=== PATIENT | female | born 1950 | race Caucasian/White ===

== ENCOUNTER 2017-01-21 18:03 | Inpatient (IN) | payer BC ==
[~2017-01-21] VITALS: Ht 157.5 cm; Wt 117.5 kg
--- NOTE | ~2017-01-21 | HC ---
[facility] [place] [address] CONSULTATION Name: CECY DEGROOT Room #: 427-P ADM IN M.R.#: [id number] Admission: 01/21/17 Attend Phys: Ye Ruth MD Discharge: Date of : 52 Report #: [id number] THIS REPORT FOR: //name// CC: Coby Ruth TYPE OF REPORT: Infectious disease consultation. REASON FOR CONSULTATION: I was asked to evaluate concerning right olecranon bursitis, recurrent urinary tract infection in the setting of diabetes. HISTORY OF PRESENT ILLNESS: The patient is a 66-year old who has had several year history incomplete emptying and urinary incontinence with recurrent urinary tract infections and cystitis. She has been on and off antibiotics, most recently Augmentin. She now presents to the emergency room with increased pain and swelling in the right elbow. She scarped the skin of the elbow 2 weeks ago. This area has healed, although she had increased swelling over the olecranon region most recently. Placed on vancomycin. She does have a history of MRSA. Orthopedic surgery has been consulted. X-rays showed edema with no bony abnormalities. ALLERGIES: ADHESIVES TAPE, LATEX and MORPHINE. MEDICATIONS: As noted on her MAR including vancomycin. She did receive ceftriaxone in the emergency room. PAST MEDICAL HISTORY: As noted above with diabetes, hypertension and bipolar disorder. FAMILY HISTORY: Noncontributory. SOCIAL HISTORY: Nonsmoker. No significant alcohol intake. 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 REVIEW OF SYSTEMS: Denies any headache, cough, sputum, nausea, vomiting or diarrhea. She is complaining of urinary incontinence and incomplete emptying of her bladder. PHYSICAL EXAMINATION: VITAL SIGNS: Afebrile and hemodynamically stable. Her maximum temperature was 100.2 on 01/21/2017. GENERAL: She was obese. She was alert and cooperative. HEENT: Unremarkable. NECK: Supple. EXTREMITIES: She had some mild tender adenopathy in the right axilla. Right upper extremity had evidence of olecranon bursitis with fluctuance over the olecranon bursa surrounding erythema, which extended up the lower portion of her [facility] [address] [place] [address] CONSULTATION Name: CECY DEGROOT Room #: 427-P [facility] IN M.R.#: [id number] Admission: 01/21/17 Attend Phys: Ye Ruth MD Discharge: Date of : 52 Report #: [id number] upper arm and involving the proximal portion of her forearm. She had reasonable range of motion, although flexion was limited due to her pain. LUNGS: Clear. HEART: Regular, without murmur. ABDOMEN: Soft, nontender and moderate abdominal pannus. No appreciable masses or hepatosplenomegaly. GENITOURINARY: External genitalia unremarkable. LABORATORY STUDIES: Sodium 139, potassium 3.7, bicarbonate 29 and creatinine 1. Hemoglobin 11.7; WBC 11.8 and platelet count 228,000. Vancomycin trough 20. Differential unremarkable. Urinalysis unremarkable. Urine culture pending. Blood culture is negative to date. RADIOLOGICAL DATA: X-ray of the elbow, soft tissue edema. IMPRESSION: 1. Olecranon bursitis, suspects staphylococcal infection versus strep infection. 2. Urinary outlet issues. Question whether she has got some neurogenic bladder from her diabetes. 3. Diabetes. RECOMMENDATIONS: We will continue IV antibiotic therapy with vancomycin. We will elevate the arm and try to control some of the edema. If no improvement, then we would recommend incision and drainage of the olecranon. We will check a post-void residual and may need further urologic evaluation. <ELECTRONICALLY SIGNED> By: Minor Encinas MD 01/26/17 1257 1605 2216 Minor Encinas MD /nt
--- NOTE | ~2017-01-21 | H ---
[facility] [place] [address] HISTORY AND PHYSICAL Name: CECY DEGROOT Room #: 427-P ADM IN M.R.#: [id number] Admission: 01/21/17 Attend Phys: Ye Ruth MD Discharge: Date of : 52 Report #: [id number] THIS REPORT FOR: //name// CC: Ronald Celaya ATTENDING PHYSICIAN: Dr. White. PRIMARY CARE PHYSICIAN: Dr. Coby Celaya at [facility]. CHIEF COMPLAINT: Right elbow pain, redness and swelling. HISTORY OF PRESENT ILLNESS: The patient is a 66-year-old female who came into the ER with the above complaints. She noticed that her right elbow is somewhat painful and feeling warm yesterday. She had had a small scab on her elbow for a few days prior to that. She is not sure how she got this scab there in the first place, but she denied any initial injury to the elbow. Today, the elbow became more red and swollen. She states the pain was 7/10 with any movement, she was able to move her elbow though and had full range of motion. She denies any history of arthritis to that elbow. She has not noticed any drainage from the scab on the elbow. Denies any fevers, but she thinks she was feeling warm. Denies any chills. She is a diabetic and states her blood sugar was 235 at home. She came into the ER and was noted to be febrile on arrival with a temperature of 37.9. She did state she had a fall at home earlier in the week that it took her 4-5 hours to get up and at one point, she thinks she was trying to use her arm and elbow to push herself up and she thinks that is when she may have obtained the sore on her elbow. PAST MEDICAL HISTORY: Diabetes type 2, hypertension, restless legs syndrome, borderline personality disorder, bipolar disorder, asthma. PAST SURGICAL HISTORY: Multiple abdominal hernia repairs including ventral hernias, umbilical hernias and inguinal hernias, cholecystectomy; screw in the foot, which was subsequently removed; appendectomy, gastric bypass, knee surgery. ALLERGIES: Include MORPHINE and . HOME MEDICATIONS: Reviewed. SOCIAL HISTORY: The patient does have a history of remote tobacco use, she quit in the 1980s. Alcohol use is rare, no drug use. She lives at home alone. 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 She has no children. She is . She normally ambulates with a cane. FAMILY HISTORY: Her mother at the age of 82 from COPD and had been a smoker. Her father from an MA at the age of 48. Her sister had renal [facility] [address] [place] [address] HISTORY AND PHYSICAL Name: CECY DEGROOT Room #: 427-P [facility] IN M.R.#: [id number] Admission: 01/21/17 Attend Phys: Ye Ruth MD Discharge: Date of : 52 Report #: [id number] cancer and is . REVIEW OF SYSTEMS: Twelve-point review of systems was reviewed with the patient, otherwise negative unless stated in the HPI. PHYSICAL EXAMINATION: GENERAL: The patient is an alert, obese female in no acute distress. VITAL SIGNS: Temperature is 37.9, heart rate 93, respirations 22, blood pressure 140/96, oxygen 96% on room air. HEENT: PERRLA. Sclerae nonicteric. Oral mucosa is pink and moist. NECK: Supple, no JVD noted. CARDIAC: Normal S1, S2. No murmurs, rubs or gallops. RESPIRATORY: Breath sounds are clear bilaterally. No wheezing or rhonchi. Breathing is nonlabored. ABDOMEN: Soft, nontender, nondistended with positive bowel sounds. It is obese. VASCULAR: 1+ bilateral lower extremity edema noted. Pedal pulses are 2+. NEUROLOGIC: The patient is alert and oriented times 3. Speech is clear. She is moving all extremities equally. No focal neuro deficits noted. MUSCULOSKELETAL: On her right elbow, there is a small scabbed area. There is no underlying fluctuance. She does have erythema that extends from the sore up into her forearm and upper arm. It does feel warm and she does have some tenderness to palpation, but she does have full range of motion of the right elbow. There is no drainage from the wound. LABORATORY DATA AND DIAGNOSTICS: WBC 20.3, hemoglobin 14.8, platelets 270. Sodium 133, potassium 3.8, BUN 16, creatinine 1.1, glucose 224, lactate 1.9. LFTs are within normal limits. Lipase 109. X-ray of the left elbow was normal. ASSESSMENT AND PLAN: 1. Right elbow cellulitis. Since the patient does have full range of motion of her right arm, it is doubtful that septic joint. We will check a CRP level. If it is significantly elevated, she may need further imaging. We will continue with Rocephin and vancomycin for now and follow blood cultures. The x-ray did not mention any bursitis or effusion that would need to be aspirated. Continue with pain control. 2. Diabetes. Blood sugars are elevated. Check hemoglobin A1c, add sliding scale insulin, continue home insulin regimen. 3. Hypertension. Blood pressure is stable, continue home medications. We will monitor. 4. Bipolar disorder. This is stable. Continue home medications. 5. Deep venous thrombosis prophylaxis, place sequential compression devices. [facility] [address] [place] [address] HISTORY AND PHYSICAL Name: CECY DEGROOT Room #: 427-P ADM IN M.R.#: [id number] Admission: 01/21/17 Attend Phys: Ye Ruth MD Discharge: Date of : 51 Report #: [id number] We will continue to follow the patient closely throughout the hospitalization and make changes based on clinical status. <ELECTRONICALLY SIGNED> By: RONNI Carpenter 01/24/17 0702 0935 1031 RONNI Carpenter /nt
--- NOTE | ~2017-01-21 | O ---
[facility] [place] [address] OPERATIVE REPORT Name: CECY DEGROOT Room #: 427-P ADM IN M.R.#: [id number] Admission: 01/21/17 Attend Phys: Ye Ruth MD Discharge: Date of : 51 Report #: [id number] THIS REPORT FOR: //name// CC: Coby Ruth DATE OF SERVICE: 01/27/2017 PREOPERATIVE DIAGNOSIS: Septic right olecranon bursitis. POSTOPERATIVE DIAGNOSIS: Septic right olecranon bursitis. PROCEDURE: I and D of right olecranon bursa. SURGEON: Ga Medrano MD. FERRY TERMINAL AGENT: Gracie Palacios PA-C. ANESTHESIA: LMA. TOURNIQUET TIME: Approximately 10 minutes. FINDINGS: There is cloudy fluid in the olecranon bursa. SPECIMENS: Cultures were taken and sent. CONDITION UPON LEAVING THE OPERATING ROOM: Stable. INDICATIONS FOR PROCEDURE: The patient is a 66-year-old female who has had right elbow pain, swelling and erythema. She was admitted to the hospital and started on IV antibiotics. On physical exam, she did have some fluctuance in her right elbow and IR aspirated this and mostly got a bloody aspiration; however, yesterday culture from her aspiration was positive for Staph aureus and so it was decided to proceed with I and D. DESCRIPTION OF PROCEDURE: Risks, benefits, alternatives, complications were discussed in detail including but not limited to risk of anesthesia, damage to nerves or blood vessels, continued infection and need for reoperation. Informed consent was obtained from the patient. Right elbow was appropriately marked in the preoperative holding area. She was already on IV Ancef for preoperative antibiotics. She was brought to the operating room and placed in supine position on operating room table. LMA anesthesia was induced without complication. Tourniquet was placed on the right upper extremity. Right upper extremity was prepped and draped in normal sterile fashion. Timeout was performed properly identifying the patient and procedure as well as the instrumentation. All in the operating room were in agreement. Right upper [address] [address] OPERATIVE REPORT Name: CECY DEGROOT Room #: 427-P ADM IN M.R.#: [id number] Admission: 01/21/17 Attend Phys: Ye Ruth MD Discharge: Date of : 51 Report #: [id number] extremity was elevated, tourniquet was inflated. Tourniquet time was 10 minutes. A longitudinal incision over the olecranon bursa was made. Upon entering the deep tissue, there was large amount of somewhat cloudy fluid. Cultures of this were taken. The bursa was removed with the rongeur. The bursa was then irrigated thoroughly with normal saline. This was then packed with 1 inch iodoform gauze with the tail left out of the incision. The incision was then closed with 3-0 nylon. Soft dressing of 4 x 4s, ABD, Webril, Karlo wrap were applied. The patient tolerated this procedure well and went to the recovery room under the care of anesthesia postoperatively. By: 1041 1058 Ga Medrano MD /nt
[2017-01-21 18:04] VITALS: BP 140/96
[2017-01-21 19:08] LABS: HEMATOCRIT 44.3 % (37.0-47.0); HEMOGLOBIN 14.8 gm/dL (12.0-15.0); MCH 29.7 pg (26.0-34.0); MCHC 33.3 g/dL (28.0-37.0); MCV 89.3 fL (80.0-100.0); PLATELET COUNT 270 thou/uL (150-400); RBC 4.97 mil/uL (4.20-5.00); RDW 13.2 % (10.5-14.5); WBC 20.3 thou/uL (4.0-11.0)
[2017-01-21 19:11] LABS: MANUAL DIFF YES
[2017-01-21 19:12] LABS: CALCIUM 9.5 mg/dL (8.5-10.1); CREATININE 1.1 mg/dL (0.6-1.0); POTASSIUM 3.8 mmol/L (3.5-5.1)
[2017-01-21 19:17] LABS: ALBUMIN 3.5 g/dL (3.4-5.0); DIRECT BILIRUBIN 0.1 mg/dL (<0.1-0.3); TOTAL BILIRUBIN 0.8 mg/dL (<0.1-1.0); TOTAL PROTEIN 7.9 g/dL (6.4-8.2)
[2017-01-21 19:31] LABS: ABSOLUTE NEUTROPHILS 16.6 thou/uL (1.4-8.2); TOTAL CELL COUNT 100
[2017-01-21 19:49] VITALS: BP 119/77
[2017-01-21 20:08] VITALS: BP 107/71
[2017-01-21 20:32] VITALS: BP 110/76
[2017-01-21] MEDS ORDERED: MAGIC MOUTHWASH PO (22:30)
[2017-01-21] MEDS ORDERED: HYDROCHLOROTHIA25 M2 PO (22:31)
[2017-01-21] MEDS ORDERED: NORVASC2.5 MG PO (22:32)
[2017-01-21] MEDS ORDERED: LAMICTAL100 MG PO (22:34)
[2017-01-21] MEDS ORDERED: RITALIN20 MG PO (22:35)
[2017-01-21] MEDS ORDERED: NEXIUM40 MG PO (22:38)
[2017-01-21] MEDS ORDERED: [UNRECOGNIZED DRUG - OTHER] PO (22:38)
[2017-01-21] MEDS ORDERED: DIOVAN320 MG PO (22:39)
[2017-01-21] MEDS ORDERED: MOBIC15 MG PO (22:39)
[2017-01-21] MEDS ORDERED: COREG25 MG PO (22:40)
[2017-01-21] MEDS ORDERED: NEURONTIN 300300 M1 PO (22:41)
[2017-01-21] MEDS ORDERED: LANTUS SOL100 UNIT/1 SQ (22:43)
[2017-01-21] MEDS ORDERED: HUMALOG100 UNIT/2 SQ (22:43)
[2017-01-21] MEDS ORDERED: CYMBALTA60 MG PO (22:44)
[2017-01-22 03:16] LABS: GLYCOHEMOGLOBIN (HGB A1C) 8.5 % (4.8-5.6)
[2017-01-22 04:00] LABS: CALCIUM 8.7 mg/dL (8.5-10.1); CREATININE 0.9 mg/dL (0.6-1.0); POTASSIUM 3.3 mmol/L (3.5-5.1)
[2017-01-22 04:04] LABS: MCH 30.1 pg (26.0-34.0); MCHC 33.5 g/dL (28.0-37.0); MCV 89.9 fL (80.0-100.0); RBC 4.23 mil/uL (4.20-5.00); RDW 12.9 % (10.5-14.5); WBC 18.9 thou/uL (4.0-11.0)
[2017-01-22 04:07] LABS: HEMOGLOBIN 12.7 gm/dL (12.0-15.0)
[2017-01-22 04:21] VITALS: BP 139/90
[2017-01-22 07:45] VITALS: BP 118/75
[2017-01-22] MEDS ORDERED: PRAMIPEXOLE ER3 MG PO (13:00)
[2017-01-22] MEDS ORDERED: SINGULAIR 10 MG10 M1 PO (13:04)
[2017-01-22] MEDS ORDERED: AMARYL2 MG PO (13:07)
[2017-01-22] MEDS ORDERED: RISPERDAL2 MG PO (13:09)
[2017-01-22] MEDS ORDERED: HYDROCODONE-AP1 EAC6 PO (13:09)
[2017-01-22 16:54] VITALS: BP 117/67
[2017-01-22 17:22] LABS: URINE BILIRUBIN NEGATIVE (Negative); URINE BLOOD NEGATIVE (Negative); URINE COLOR YELLOW; URINE GLUCOSE-RANDOM* TRACE (Negative); URINE KETONES NEGATIVE (Negative); URINE NITRITE NEGATIVE (Negative); URINE PROTEIN (DIPSTICK) TRACE (Negative); URINE SPECIFIC GRAVITY 1.025 (1.003-1.035); URINE UROBILINOGEN 0.2 E.U./dl (0.2-1.0)
[2017-01-22 20:02] VITALS: BP 110/72
[2017-01-23 04:12] VITALS: BP 105/53
[2017-01-23 08:09] VITALS: BP 140/90
[2017-01-23 15:51] VITALS: BP 144/93
[2017-01-23 20:00] VITALS: BP 116/68
[2017-01-24 04:31] VITALS: BP 136/78
[2017-01-24 05:42] LABS: ABSOLUTE NEUTROPHILS 7.6 thou/uL (1.4-8.2); BASOPHILS 0.5 % (0.0-2.0); EOSINOPHILS 6.1 % (0.0-3.0); HEMATOCRIT 35.4 % (37.0-47.0); HEMOGLOBIN 11.7 gm/dL (12.0-15.0); LYMPHOCYTES 17.1 % (24.0-44.0); MCH 29.8 pg (26.0-34.0); MCHC 33.2 g/dL (28.0-37.0); MCV 89.7 fL (80.0-100.0); MONOCYTES 11.9 % (1.0-8.0); PLATELET COUNT 228 thou/uL (150-400); POLYS 64.4 % (36.0-66.0); RBC 3.94 mil/uL (4.20-5.00); RDW 13.3 % (10.5-14.5); WBC 11.8 thou/uL (4.0-11.0)
[2017-01-24 05:43] LABS: MANUAL DIFF NO
[2017-01-24 05:48] LABS: CALCIUM 8.8 mg/dL (8.5-10.1); POTASSIUM 3.7 mmol/L (3.5-5.1)
[2017-01-24 08:16] VITALS: BP 139/85
[2017-01-24 14:49] VITALS: BP 153/84
[2017-01-24 17:52] LABS: BF NUCLEATED CELLS 16659; BF RBC 181140
[2017-01-24 17:54] LABS: CLARITY CLOUDY; COLOR RED; TOTAL VOLUME 3.5 mL
[2017-01-24 20:46] LABS: MANUAL DIFF YES
[2017-01-24 20:47] LABS: BF MACROPHAGE 1; BF NEUTROPHILS 97
[2017-01-24 22:10] VITALS: BP 148/84
[2017-01-25 04:29] VITALS: BP 149/83
[2017-01-25 06:44] LABS: HEMATOCRIT 36.6 % (37.0-47.0); HEMOGLOBIN 12.1 gm/dL (12.0-15.0); MCH 29.8 pg (26.0-34.0); MCHC 33.1 g/dL (28.0-37.0); MCV 89.9 fL (80.0-100.0); RBC 4.08 mil/uL (4.20-5.00)
[2017-01-25 06:47] LABS: MANUAL DIFF YES
[2017-01-25 06:51] LABS: CALCIUM 9.1 mg/dL (8.5-10.1); CREATININE 0.9 mg/dL (0.6-1.0); POTASSIUM 4.1 mmol/L (3.5-5.1)
[2017-01-25 08:13] LABS: ABSOLUTE NEUTROPHILS 6.7 thou/uL (1.4-8.2); ANISOCYTOSIS 1+; ATYPICAL LYMPHS 1 %; PLATELET COUNT 254 thou/uL (150-400); TOTAL CELL COUNT 100
[2017-01-25 09:15] VITALS: BP 149/95
[2017-01-25 20:00] VITALS: BP 177/67
[2017-01-26 04:32] VITALS: BP 185/83
[2017-01-26 07:45] VITALS: BP 181/76
[2017-01-26 15:05] VITALS: BP 187/112
[2017-01-26 20:05] VITALS: BP 164/80
[2017-01-27 03:53] VITALS: BP 154/99
[2017-01-27 06:34] LABS: HEMATOCRIT 37.5 % (37.0-47.0); HEMOGLOBIN 12.3 gm/dL (12.0-15.0); MCH 29.8 pg (26.0-34.0); MCHC 32.8 g/dL (28.0-37.0); MCV 90.8 fL (80.0-100.0); PLATELET COUNT 282 thou/uL (150-400); RBC 4.13 mil/uL (4.20-5.00); WBC 12.2 thou/uL (4.0-11.0)
[2017-01-27 06:37] LABS: MANUAL DIFF YES
[2017-01-27 06:53] LABS: CALCIUM 9.3 mg/dL (8.5-10.1); CREATININE 1.1 mg/dL (0.6-1.0); MAGNESIUM 1.8 mg/dL (1.8-2.4); POTASSIUM 4.2 mmol/L (3.5-5.1)
[2017-01-27 07:40] VITALS: BP 187/100
[2017-01-27 07:45] LABS: ABSOLUTE NEUTROPHILS 8.9 thou/uL (1.4-8.2); TOTAL CELL COUNT 100
[2017-01-27 07:46] LABS: ANISOCYTOSIS SLIGHT
[2017-01-27 09:04] VITALS: BP 116/59
[2017-01-27 16:34] VITALS: BP 182/100
[2017-01-27 20:26] VITALS: BP 158/88
[2017-01-28] VITALS (7 sets, daily range): BP systolic 142–170; BP diastolic 82–92
[2017-01-28] MEDS ORDERED: COLACE100 MG PO (12:06)
[2017-01-28] MEDS ORDERED: PROBIOTIC1 EAC1 PO (12:06)
[2017-01-28] MEDS ORDERED: ANCEF 1GM1 GM/50 M2 IV (12:06)
== END 2017-01-28 16:00 | disposition home health service (06) | DRG 854 ==
LOC: ER 18:03 → EROBS 19:19 → 4E 19:19
PROVIDERS: Emergency Medicine; Internal Medicine; Internal Medicine Endocrinology, Diabetes & Metabolism; Nurse Practitioner Acute Care
PROC: 02HV33Z Insertion of Infusion Device into Superior Vena Cava, Percutaneous Approach (ICD-10-PCS; principal; 2017-01-25)
PROC: B548ZZA Ultrasonography of Superior Vena Cava, Guidance (ICD-10-PCS; principal; 2017-01-25)
PROC: 0MB30ZZ Excision of Right Elbow Bursa and Ligament, Open Approach (ICD-10-PCS; 2017-01-27)
PROC: 0M930ZZ Drainage of Right Elbow Bursa and Ligament, Open Approach (ICD-10-PCS; 2017-01-27)
DX: A41.9 Sepsis, unspecified organism (principal); L03.113 Cellulitis of right upper limb; N39.0 Urinary tract infection, site not specified; M71.121 Other infective bursitis, right elbow; E11.65 Type 2 diabetes mellitus with hyperglycemia; B95.61 Methicillin susceptible Staphylococcus aureus infection as the cause of diseases classified elsewhere; E87.6 Hypokalemia; I10 Essential (primary) hypertension; G25.81 Restless legs syndrome; F31.9 Bipolar disorder, unspecified; J45.909 Unspecified asthma, uncomplicated; G47.33 Obstructive sleep apnea (adult) (pediatric); Z79.4 Long term (current) use of insulin; Z79.899 Other long term (current) drug therapy; Z88.6 Allergy status to analgesic agent; Z91.040 Latex allergy status; Z91.048 Other nonmedicinal substance allergy status; Z90.49 Acquired absence of other specified parts of digestive tract; Z98.84 Bariatric surgery status; Z87.891 Personal history of nicotine dependence; Z82.49 Family history of ischemic heart disease and other diseases of the circulatory system; Z83.6 Family history of other diseases of the respiratory system
CPT/HCPCS: 10084; 27000; 50101; 50386; 57091; 62110; 62900; 70005

== ENCOUNTER 2017-04-28 20:39 | Emergency (ER) | payer BC ==
[~2017-04-28] VITALS: Ht 157.5 cm; Wt 113.4 kg
[~2017-04-28 20:39] MED LIST: AMARYL2 MG PO; ANCEF 1GM1 GM/50 M2 IV; COLACE100 MG PO; COREG25 MG PO; CYMBALTA60 MG PO; DIOVAN320 MG PO; HUMALOG100 UNIT/2 SQ; HYDROCHLOROTHIA25 M2 PO; HYDROCODONE-AP1 EAC6 PO; LAMICTAL100 MG PO; LANTUS SOL100 UNIT/1 SQ; MAGIC MOUTHWASH PO; MOBIC15 MG PO; NEURONTIN 300300 M1 PO; NEXIUM40 MG PO; NORVASC2.5 MG PO; PRAMIPEXOLE ER3 MG PO; PROBIOTIC1 EAC1 PO; RISPERDAL2 MG PO; RITALIN20 MG PO; SINGULAIR 10 MG10 M1 PO; [UNRECOGNIZED DRUG - OTHER] PO
[2017-04-28] MEDS ORDERED: IBUPROFEN 600600 M1 PO (21:58)
[2017-04-28] MEDS ORDERED: KEFLEX500 M1 PO (21:58)
[2017-04-28 22:09] VITALS: BP 112/58
== END 2017-04-28 22:11 | disposition home or self-care (01) ==
LOC: ER 20:39
DX: M79.644 Pain in right finger(s) (principal); I10 Essential (primary) hypertension; E11.9 Type 2 diabetes mellitus without complications; F31.9 Bipolar disorder, unspecified; Z98.84 Bariatric surgery status; Z98.890 Other specified postprocedural states; Z91.048 Other nonmedicinal substance allergy status; Z91.040 Latex allergy status; Z88.5 Allergy status to narcotic agent; Z79.4 Long term (current) use of insulin; F10.99 Alcohol use, unspecified with unspecified alcohol-induced disorder

== ENCOUNTER 2017-06-28 06:45 | Emergency (ER) | payer OTHER ==
[~2017-06-28] VITALS: Ht 157.5 cm; Wt 111.1 kg
[~2017-06-28 06:45] MED LIST changes: +IBUPROFEN 600600 M1 PO; +KEFLEX500 M1 PO
[2017-06-28 06:47] VITALS: BP 149/99
[2017-06-28] MEDS ORDERED: ACETAMINOPHEN-1 EAC1 PO (08:47)
[2017-06-28] MEDS ORDERED: CLEOCIN HCL150 MG PO (08:47)
== END 2017-06-28 09:26 | disposition home or self-care (01) ==
LOC: ER 06:45
DX: L03.012 Cellulitis of left finger (principal); Z88.6 Allergy status to analgesic agent; Z91.040 Latex allergy status; Z87.891 Personal history of nicotine dependence

== ENCOUNTER 2018-06-01 16:15 | Emergency (ER) | payer OTHER ==
[~2018-06-01] VITALS: Ht 157.5 cm; Wt 112.0 kg
[~2018-06-01 16:15] MED LIST changes: +ACETAMINOPHEN-1 EAC1 PO; +CLEOCIN HCL150 MG PO
[2018-06-01 16:58] LABS: HEMATOCRIT 36.7 % (37.0-47.0); HEMOGLOBIN 12.3 gm/dL (12.0-15.0); MCHC 33.4 g/dL (28.0-37.0); MCV 89.8 fL (80.0-100.0); PLATELET COUNT 316 thou/uL (150-400); RBC 4.09 mil/uL (4.20-5.00); RDW 13.2 % (10.5-14.5); WBC 9.7 thou/uL (4.0-11.0)
[2018-06-01 17:03] LABS: ANION GAP 10 mmol/L (7-16); BUN 39 mg/dL (7-18); CALCIUM 9.7 mg/dL (8.5-10.1); CHLORIDE 105 mmol/L (98-107); CO2 28 mmol/L (21-32); CREATININE 1.2 mg/dL (0.6-1.0); GLUCOSE 154 mg/dL (74-106); POTASSIUM 3.4 mmol/L (3.5-5.1); SODIUM 143 mmol/L (136-145)
[2018-06-01] MEDS ORDERED: RISPERIDONE 1 MG1 MG PO (17:04)
[2018-06-01] MEDS ORDERED: VENTOLIN HFA 1818 GM INH (17:04)
[2018-06-01] MEDS ORDERED: BREO ELLIPTA 21 EACH INH (17:05)
[2018-06-01] MEDS ORDERED: ARMODAFINIL150 MG PO (17:05)
[2018-06-01] MEDS ORDERED: PRAMIPEXOLE DIHY1 MG PO (17:07)
[2018-06-01] MEDS ORDERED: IPRAT-ALBUT 0.5-3 ML INH (17:07)
[2018-06-01 17:08] LABS: URINE BILIRUBIN NEGATIVE (Negative); URINE BLOOD NEGATIVE (Negative); URINE CLARITY CLEAR; URINE COLOR YELLOW; URINE GLUCOSE-RANDOM* NEGATIVE (Negative); URINE KETONES NEGATIVE (Negative); URINE LEUKOCYTES 1+ (Negative); URINE NITRITE NEGATIVE (Negative); URINE PROTEIN (DIPSTICK) NEGATIVE (Negative); URINE SPECIFIC GRAVITY >= 1.030 (1.005-1.035); URINE UROBILINOGEN 0.2 E.U./dl (0.2-1.0)
[2018-06-01] MEDS ORDERED: PREDNISONE 10 M10 MG PO (17:08)
[2018-06-01 17:09] LABS: ALBUMIN 3.2 g/dL (3.4-5.0); SALICYLATE 4.2 mg/dL (2.8-20.0); SGOT 18 U/L (15-37); SGPT 23 U/L (30-65); TOTAL BILIRUBIN 0.2 mg/dL (<0.1-1.0); TOTAL PROTEIN 6.9 g/dL (6.4-8.2)
[2018-06-01] MEDS ORDERED: CLARITIN10 MG PO (17:09)
[2018-06-01] MEDS ORDERED: NOVOLOG100 UNIT/1 SUBQ (17:10)
[2018-06-01] MEDS ORDERED: LIDODERM1 EACH TOP (17:11)
[2018-06-01] MEDS ORDERED: FIBER500 MG PO (17:11)
[2018-06-01] MEDS ORDERED: FLONASE 0.05%50 MCG NASAL (17:13)
[2018-06-01 17:14] LABS: AMP/METHAMP Negative (Negative); BARBITURATES Negative (Negative); BENZODIAZEPINES Negative (Negative); COCAINE Negative (Negative); METHADONE Negative (Negative); OPIATES Negative (Negative); PCP Negative (Negative)
[2018-06-01 17:20] LABS: BACTERIA 1-9 Few /HPF (None Seen); CASTS None Seen /LPF (None Seen); CRYSTALS None Seen /LPF (None Seen); SQUAMOUS >10 Many /LPF (0-3); URINE RBC None Seen /HPF (0-2)
[2018-06-01 17:33] LABS: ANISOCYTOSIS 1+
[2018-06-01 17:34] LABS: POLYCHROMASIA OCCASIONAL
[2018-06-01] MEDS ORDERED: CYMBALTA30 MG PO (19:03)
[2018-06-01 19:34] VITALS: BP 148/79
== END 2018-06-01 19:19 | disposition home or self-care (01) ==
LOC: ER 16:15
PROVIDERS: Physician Assistant
DX: F32.9 Major depressive disorder, single episode, unspecified (principal); T43.211A Poisoning by selective serotonin and norepinephrine reuptake inhibitors, accidental (unintentional), initial encounter; E11.9 Type 2 diabetes mellitus without complications; I10 Essential (primary) hypertension; G25.81 Restless legs syndrome; Z90.49 Acquired absence of other specified parts of digestive tract; Z79.4 Long term (current) use of insulin; Y92.89 Other specified places as the place of occurrence of the external cause; Z91.048 Other nonmedicinal substance allergy status; Z91.040 Latex allergy status; Z88.5 Allergy status to narcotic agent; Z87.891 Personal history of nicotine dependence

== ENCOUNTER 2018-07-29 06:27 | Emergency (ER) | payer OTHER ==
[~2018-07-29] VITALS: Ht 157.5 cm; Wt 111.1 kg
[~2018-07-29 06:27] MED LIST changes: +ARMODAFINIL150 MG PO; +BREO ELLIPTA 21 EACH INH; +CLARITIN10 MG PO; +CYMBALTA30 MG PO; +FIBER500 MG PO; +FLONASE 0.05%50 MCG NASAL; +IPRAT-ALBUT 0.5-3 ML INH; +LIDODERM1 EACH TOP; +NOVOLOG100 UNIT/1 SUBQ; +PRAMIPEXOLE DIHY1 MG PO; +PREDNISONE 10 M10 MG PO; +RISPERIDONE 1 MG1 MG PO; +VENTOLIN HFA 1818 GM INH
[2018-07-29] MEDS ORDERED: CIPRO250 M1 PO (06:32)
[2018-07-29] MEDS ORDERED: NEURONTIN600 MG PO (08:17)
[2018-07-29 11:13] VITALS: BP 171/90
== END 2018-07-29 11:14 | disposition home or self-care (01) ==
LOC: ER 06:27
DX: F41.9 Anxiety disorder, unspecified (principal); G89.4 Chronic pain syndrome; M17.11 Unilateral primary osteoarthritis, right knee; M19.011 Primary osteoarthritis, right shoulder; I10 Essential (primary) hypertension; E11.9 Type 2 diabetes mellitus without complications; F31.9 Bipolar disorder, unspecified; Z90.49 Acquired absence of other specified parts of digestive tract; Z98.84 Bariatric surgery status; Z87.891 Personal history of nicotine dependence; Z88.5 Allergy status to narcotic agent; Z91.040 Latex allergy status

== ENCOUNTER 2018-11-11 12:04 | Emergency (ER) | payer OTHER ==
[~2018-11-11] VITALS: Ht 157.5 cm; Wt 110.2 kg
[~2018-11-11 12:04] MED LIST changes: +CIPRO250 M1 PO; +NEURONTIN600 MG PO
[2018-11-11 12:38] LABS: HEMATOCRIT 37.3 % (37.0-47.0); HEMOGLOBIN 12.4 gm/dL (12.0-15.0); MCH 28.3 pg (26.0-34.0); MCHC 33.3 g/dL (28.0-37.0); MCV 84.9 fL (80.0-100.0); PLATELET COUNT 304 thou/uL (150-400); RDW 14.8 % (10.5-14.5); WBC 8.6 thou/uL (4.0-11.0)
[2018-11-11 12:46] LABS: ANION GAP 10 mmol/L (7-16); BUN 33 mg/dL (7-18); CHLORIDE 104 mmol/L (98-107); CO2 24 mmol/L (21-32); CREATININE 1.1 mg/dL (0.6-1.0); GLUCOSE 166 mg/dL (74-106); POTASSIUM 4.1 mmol/L (3.5-5.1); SODIUM 138 mmol/L (136-145)
[2018-11-11 12:49] LABS: PROTIME 10.4 Seconds (9.3-11.4)
[2018-11-11 12:56] LABS: ABSOLUTE NEUTROPHILS 5.4 thou/uL (1.4-8.2); ANISOCYTOSIS 1+; SGOT 25 U/L (15-37); SGPT 50 U/L (30-65); TOTAL BILIRUBIN 0.2 mg/dL (<0.1-1.0); TOTAL PROTEIN 6.6 g/dL (6.4-8.2); TROPONIN-I <0.06 ng/mL (<0.06)
[2018-11-11 13:30] LABS: URINE BLOOD NEGATIVE (Negative); URINE CLARITY CLEAR; URINE COLOR YELLOW; URINE GLUCOSE-RANDOM* NEGATIVE (Negative); URINE KETONES NEGATIVE (Negative); URINE NITRITE-REFLEX NEGATIVE (Negative); URINE PROTEIN (DIPSTICK) TRACE (Negative); URINE SPECIFIC GRAVITY 1.025 (1.005-1.035); URINE UROBILINOGEN 0.2 E.U./dl (0.2-1.0)
[2018-11-11 13:31] LABS: ICTOTEST (BILI CONFIRMATORY) Negative (Negative); URINE BILIRUBIN NEGATIVE (Negative); URINE LEUKOCYTES-REFLEX 2+ (Negative)
[2018-11-11 13:50] LABS: CASTS None Seen /LPF (None Seen); CRYSTALS None Seen /LPF (None Seen); SQUAMOUS >10 Many /LPF (0-3); URINE RBC None Seen /HPF (0-2); URINE WBC-REFLEX >25 Many /HPF (0-5)
[2018-11-11 15:15] VITALS: BP 136/74
[2018-11-11] MEDS ORDERED: KEFLEX500 M1 PO (15:19)
--- NOTE | 2018-11-13 08:38 | EKG ---
[place] [address] [facility] [place] [address] ELECTROCARDIOGRAM REPORT Name: CECY DEGROOT Room #: DEP Willie#: [id number] ������������������ Admission: 11/11/18 ������������������ Attend Phys: Discharge: 11/11/18 ������������������ Date of : 52 Report #: [id number] ����������������������������������������������������������������� [id number] THIS REPORT FOR: //name// [facility] ED Test Date: 2018-11-11 Test Time: 12:40:01 Pat Name: CECY DEGROOT Department: Room: Gender: F Subscription Crew Leader: : 1950 Requested By: Emily Luong Order Number: [id number] MD: Bryan Tejada Measurements Intervals [place] Rate: 87 P: 16 NM: 175 QRS: -38 QRSD: 98 T: 76 QT: 373 QTc: 449 Interpretive Statements Sinus rhythm Left axis deviation No previous ECG available for comparison Electronically Signed On 11-13-2018 8:38:23 CDT by Bryan Tejada [email or web address] ��������������������������������������������� <ELECTRONICALLY SIGNED> ���������������������������������������� By: Bryan Tejada MD ��������������������������������������������� 11/13/18 0838 1240 1240 Bryan Tejada MD /BABITA
== END 2018-11-11 15:15 | disposition home or self-care (01) ==
LOC: ER 12:04
PROVIDERS: Physician Assistant
DX: N39.0 Urinary tract infection, site not specified (principal); R42 Dizziness and giddiness; I10 Essential (primary) hypertension; G25.81 Restless legs syndrome; F31.9 Bipolar disorder, unspecified; Z87.891 Personal history of nicotine dependence; Z91.048 Other nonmedicinal substance allergy status; Z91.040 Latex allergy status; Z88.5 Allergy status to narcotic agent; Z90.49 Acquired absence of other specified parts of digestive tract; Z79.4 Long term (current) use of insulin

== ENCOUNTER 2019-11-13 10:14 | Emergency (ER) | payer OTHER ==
[~2019-11-13] VITALS: Ht 172.7 cm; Wt 90.7 kg
[2019-11-13 10:17] VITALS: BP 131/98
[2019-11-13] MEDS ORDERED: CYMBALTA60 MG PO (11:14)
[2019-11-13] MEDS ORDERED: LAMICTAL200 MG PO (11:14)
[2019-11-13] MEDS ORDERED: HALOPERIDOL 5 MG5 MG PO (11:14)
== END 2019-11-13 11:38 | disposition home or self-care (01) ==
LOC: ER 10:14
DX: F11.23 Opioid dependence with withdrawal (principal); Z76.0 Encounter for issue of repeat prescription; E11.9 Type 2 diabetes mellitus without complications; I10 Essential (primary) hypertension; G25.81 Restless legs syndrome; Z87.891 Personal history of nicotine dependence; Z91.040 Latex allergy status; Z88.5 Allergy status to narcotic agent; Z79.899 Other long term (current) drug therapy; Z98.84 Bariatric surgery status

== ENCOUNTER 2019-12-22 10:52 | Emergency (ER) | payer OTHER ==
[~2019-12-22] VITALS: Ht 154.9 cm; Wt 106.6 kg
[~2019-12-22 10:52] MED LIST changes: +HALOPERIDOL 5 MG5 MG PO; +LAMICTAL200 MG PO
[2019-12-22 11:42] LABS: HEMATOCRIT 33.7 % (37.0-47.0); HEMOGLOBIN 11.2 gm/dL (12.0-15.0); MCH 30.3 pg (26.0-34.0); MCHC 33.2 g/dL (28.0-37.0); MCV 91.4 fL (80.0-100.0); PLATELET COUNT 394 thou/uL (150-400); RBC 3.69 mil/uL (4.20-5.00); RDW 13.9 % (10.5-14.5); WBC 12.7 thou/uL (4.0-11.0)
[2019-12-22 11:47] LABS: ANION GAP 6 mmol/L (7-16); BUN 23 mg/dL (7-18); CALCIUM 9.3 mg/dL (8.5-10.1); CHLORIDE 98 mmol/L (98-107); CO2 29 mmol/L (21-32); CREATININE 1.4 mg/dL (0.6-1.0); GLUCOSE 118 mg/dL (74-106); POTASSIUM 4.6 mmol/L (3.5-5.1); SODIUM 133 mmol/L (136-145)
[2019-12-22 11:58] LABS: ALBUMIN 2.8 g/dL (3.4-5.0); MAGNESIUM 1.8 mg/dL (1.8-2.4); SGOT 24 U/L (15-37); SGPT 28 U/L (30-65); TOTAL BILIRUBIN 0.3 mg/dL (0.2-1.0); TROPONIN-I <0.06 ng/mL (<0.06)
[2019-12-22] MEDS ORDERED: CLEOCIN HCL150 MG PO (12:58)
[2019-12-22] MEDS ORDERED: CLINDAMYCIN HC300 MG PO (13:01)
[2019-12-22 13:08] LABS: URINE BILIRUBIN NEGATIVE (Negative); URINE BLOOD NEGATIVE (Negative); URINE CLARITY CLEAR; URINE COLOR YELLOW; URINE GLUCOSE-RANDOM* NEGATIVE (Negative); URINE KETONES NEGATIVE (Negative); URINE NITRITE-REFLEX NEGATIVE (Negative); URINE PROTEIN (DIPSTICK) NEGATIVE (Negative); URINE SPECIFIC GRAVITY 1.015 (1.005-1.035); URINE UROBILINOGEN 0.2 E.U./dl (0.2-1.0)
[2019-12-22 13:09] LABS: URINE LEUKOCYTES-REFLEX 1+ (Negative)
[2019-12-22 13:16] LABS: CASTS None Seen /LPF (None Seen); SQUAMOUS >10 Many /LPF (0-3); URINE WBC-REFLEX 6-15 Few /HPF (0-5)
[2019-12-22 13:17] LABS: BACTERIA-REFLEX 1-9 Few /HPF (None Seen); CRYSTALS None Seen /LPF (None Seen); MUCUS 0-3 Light strn/LPF (None Seen); URINE RBC 0-2 Rare /HPF (0-2)
[2019-12-22 13:25] LABS: ABSOLUTE NEUTROPHILS 8.8 thou/uL (1.4-8.2)
[2019-12-22 16:24] VITALS: BP 156/84
--- NOTE | 2019-12-24 07:50 | EKG ---
[facility] [place] [address] ELECTROCARDIOGRAM REPORT Name: CECY DEGROOT Room #: DEP [facility].#: [id number] Admission: 12/22/19 Attend Phys: Discharge: 12/22/19 Date of : 52 Report #: [id number] THIS REPORT FOR: cc: FAM - Family physician unknown FAM - Family physician unknown Fredy Jay MD [facility] THIS REPORT FOR: //name// [facility] ED Test Date: 2019-12-22 Test Time: 11:44:34 Pat Name: CECY DEGROOT Department: Room: Gender: Electroplater Automatic: [facility] : 1950 Requested By: Minor Canela Order Number: [id number] MD: Fredy Jay Measurements Intervals [place] Rate: 86 P: 10 [place]: 172 QRS: -16 QRSD: 97 T: 58 QT: 360 QTc: 431 Interpretive Statements Sinus rhythm No significant abnormality Compared to ECG 11/11/2018 12:40:01 No significant changes Electronically Signed On 12-24-2019 7:50:45 CDT by Fredy Jay [email or web address] <ELECTRONICALLY SIGNED> By: Fredy Jay MD, [facility] 12/24/19 0750 1144 1144 Fredy Jay MD, [facility] /EPI
== END 2019-12-22 16:24 | disposition short-term general hospital (02) ==
LOC: ER 10:52
PROVIDERS: Emergency Medicine
DX: K04.7 Periapical abscess without sinus (principal); K12.2 Cellulitis and abscess of mouth; M27.2 Inflammatory conditions of jaws; I10 Essential (primary) hypertension; E11.9 Type 2 diabetes mellitus without complications; Z90.49 Acquired absence of other specified parts of digestive tract; Z87.891 Personal history of nicotine dependence; Z79.2 Long term (current) use of antibiotics; Z79.4 Long term (current) use of insulin; Z79.899 Other long term (current) drug therapy; Z88.5 Allergy status to narcotic agent; Z91.040 Latex allergy status; Z91.048 Other nonmedicinal substance allergy status

== ENCOUNTER 2020-02-12 20:46 | Emergency (ER) | payer OTHER ==
[~2020-02-12] VITALS: Ht 162.6 cm; Wt 83.9 kg
[~2020-02-12 20:46] MED LIST changes: +CLINDAMYCIN HC300 MG PO
[2020-02-12] MEDS ORDERED: CYCLOBENZAPRINE5 MG PO (22:56)
[2020-02-12] MEDS ORDERED: VOLTAREN 50MG T50 MG PO (22:56)
[2020-02-12 23:01] VITALS: BP 106/57
== END 2020-02-12 23:07 | disposition home or self-care (01) ==
LOC: ER 20:46
DX: S39.012A Strain of muscle, fascia and tendon of lower back, initial encounter (principal); M25.511 Pain in right shoulder; M25.551 Pain in right hip; E11.9 Type 2 diabetes mellitus without complications; I10 Essential (primary) hypertension; F31.9 Bipolar disorder, unspecified; Z88.5 Allergy status to narcotic agent; Z90.49 Acquired absence of other specified parts of digestive tract; Z98.84 Bariatric surgery status; Z79.899 Other long term (current) drug therapy; Z79.2 Long term (current) use of antibiotics; Z79.4 Long term (current) use of insulin; Z91.048 Other nonmedicinal substance allergy status; Z91.040 Latex allergy status; Z87.891 Personal history of nicotine dependence; W19.XXXA Unspecified fall, initial encounter; Y93.89 Activity, other specified; Y92.002 Bathroom of unspecified non-institutional (private) residence as the place of occurrence of the external cause; Y99.8 Other external cause status

== ENCOUNTER 2020-02-18 05:37 | Inpatient (IN) | payer OTHER ==
[~2020-02-18] VITALS: Ht 157.5 cm; Wt 103.4 kg
[2020-02-18] VITALS: BP 118/69
[~2020-02-18 05:37] MED LIST changes: +CYCLOBENZAPRINE5 MG PO; +NORVASC 2.5 MG2.5 M1 PO; -NORVASC2.5 MG PO; +VOLTAREN 50MG T50 MG PO
[2020-02-18 05:41] VITALS: BP 107/75
[2020-02-18 11:07] LABS: BASOPHILS 1.2 % (0.0-2.0); EOSINOPHILS 2.9 % (0.0-3.0); HEMATOCRIT 37.7 % (37.0-47.0); HEMOGLOBIN 12.4 gm/dL (12.0-15.0); LYMPHOCYTES 24.3 % (24.0-44.0); MCHC 32.9 g/dL (28.0-37.0); MCV 91.3 fL (80.0-100.0); PLATELET COUNT 456 thou/uL (150-400); POLYS 59.6 % (36.0-66.0); RBC 4.13 mil/uL (4.20-5.00); RDW 14.6 % (10.5-14.5); WBC 10.1 thou/uL (4.0-11.0)
[2020-02-18 11:38] LABS: URINE BILIRUBIN NEGATIVE (Negative); URINE BLOOD NEGATIVE (Negative); URINE CLARITY CLEAR; URINE COLOR YELLOW; URINE GLUCOSE-RANDOM* NEGATIVE (Negative); URINE KETONES TRACE (Negative); URINE LEUKOCYTES-REFLEX NEGATIVE (Negative); URINE NITRITE-REFLEX NEGATIVE (Negative); URINE PROTEIN (DIPSTICK) NEGATIVE (Negative); URINE SPECIFIC GRAVITY 1.025 (1.005-1.035); URINE UROBILINOGEN 0.2 E.U./dl (0.2-1.0)
[2020-02-18 11:45] LABS: ANION GAP 10 mmol/L (7-16); BUN 18 mg/dL (7-18); CHLORIDE 104 mmol/L (98-107); CO2 24 mmol/L (21-32); CREATININE 1.8 mg/dL (0.6-1.0); GLUCOSE 97 mg/dL (74-106); POTASSIUM 4.6 mmol/L (3.5-5.1); SODIUM 138 mmol/L (136-145)
[2020-02-18 11:50] LABS: ALBUMIN 3.1 g/dL (3.4-5.0); MAGNESIUM 1.7 mg/dL (1.8-2.4); SGOT 16 U/L (15-37); SGPT 13 U/L (30-65); TOTAL BILIRUBIN 0.2 mg/dL (0.2-1.0)
[2020-02-18 12:19] VITALS: BP 107/53
[2020-02-18 13:15] VITALS: BP 109/59
--- NOTE | 2020-02-18 15:37 | NUR ---
PATIENT ARRIVED FROM ED VIA STRECHER, ALERT AND ORIENTED X4, AND VSS AND SR ON THE MONITOR.ORTHO CONSULT CALLED IN. ADMISION COMPLETED AND WILL CONTINUE WITH POC.
[2020-02-18 15:40] VITALS: BP 119/79
[2020-02-18 17:26] LABS: DIRECT BILIRUBIN < 0.1 mg/dL (<0.1-0.2); LIPASE 92 U/L (73-393)
[2020-02-18 19:30] VITALS: BP 117/71
[2020-02-18] MEDS ORDERED: TRESIBA FL100 UNIT/1 (20:51)
[2020-02-18] MEDS ORDERED: MIRAPEX1.5 MG PO (20:57)
[2020-02-18] MEDS ORDERED: METFORMIN HCL500 M3 PO (21:06)
[2020-02-18] MEDS ORDERED: HYDROCHLOROTHIA25 M2 PO (21:08)
[2020-02-18] MEDS ORDERED: LORCET 5-325 M1 EACH PO (21:10)
--- NOTE | 2020-02-19 03:07 | NUR ---
CARE ASSUMED 190. PT ALERT AND ORIENTED. VITALS STABLE. DENIES PAIN. REPORTS GENERAL WEAKNESS. MED REC. CONFIRMED AND VERIFIED BY THE PATIENT. INSPECTOR SET UP AND LAY OUT NOTIFIED TO RESUME SOME OF PTs HOME MEDS. DENIES CHEST PAIN, NAUSEA OR VOMITING. PT WOULD LIKE TO ESTABLISH REASON BEHIND FREQUENT FALLS. NO EVENTS OVERNIGHT. SR ON THE MONITOR. WILL CONTINUE TO FOLLOW POC.
[2020-02-19 04:01] LABS: CALCIUM 8.5 mg/dL (8.5-10.1); CREATININE 1.3 mg/dL (0.6-1.0); POTASSIUM 4.5 mmol/L (3.5-5.1)
[2020-02-19 04:15] VITALS: BP 123/84
--- NOTE | 2020-02-19 08:24 | EKG ---
[facility] [place] [address] ELECTROCARDIOGRAM REPORT Name: CECY DEGROOT Room #: 204-P ADM IN M.R.#: [id number] Admission: 02/18/20 Attend Phys: Иван Shaw MD Discharge: Date of : 51 Report #: [id number] THIS REPORT FOR: cc: [facility] - Clinic physician unknown [facility] - Clinic physician unknown Fredy Jay MD [facility] ~ THIS REPORT FOR: //name// [facility] ED Test Date: 2020-02-18 Test Time: 11:02:13 Pat Name: CECY DEGROOT Department: Room: [facility] Gender: F Digital Marketing Specialist: YARED : 1950 Requested By: Minor Canela Order Number: [id number] MD: Fredy Jay Measurements Intervals [place] Rate: 83 P: -22 [place]: 171 QRS: -36 QRSD: 104 T: 81 QT: 369 QTc: 434 Interpretive Statements Sinus rhythm Inferior infarct, old Poor R wave progression Baseline wander in lead(s) V1 Compared to ECG 12/22/2019 11:44:34 Inferior Q waves are more prominent Electronically Signed On 02-19-2020 8:23:58 CDT by Fredy Jay [email or web address] <ELECTRONICALLY SIGNED> By: Fredy Jay MD, [facility] 02/19/20 0823 1102 1102 Fredy Jay MD, [facility] /EPI
--- NOTE | 2020-02-19 11:38 | NUR ---
SC CONSULT COMPLETED BY THIS FILTER WASHER. WE HAD A MEANINGFUL VISIT. I AM GOING TO REACH OUT TO A FORMER CO-WORKER FROM [employer] THAT WE BOTH KNOW.
--- NOTE | 2020-02-19 14:16 | NUR ---
PT ADMITTED RELATED TO FALL, HYPOTENSION, HEAD INJURY, ELKE. CM REVIEWED CHART AND SPOKE WITH CARE TEAM. CM CALLED AND SPOKE WITH PT OVER THE PHONE THIS AFTERNOON. PT APPEARED TO BE A&O X4. CM ROLE INTRODUCED. PT INDICATED SHE LIVES IN A [facility] HOUSING APT OWNED BY THE uShip WITH ELEVATOR ACCESS. PT INIDCATED SHE HAD USED A CANE AND A 4WW TO ASSIST WITH MOBILITY CONTROLS TECHNICIAN. PT INDICATED SHE HAS HCBS THROUGH HER MEDICIAD 5 DAYS A WEEK THROUGH ABOVE AND BEYOND. SHE INDICATED THAT HER PCP IS DR. COSTA RODGERS AT [facility]. PT INICATED SHE HAS DONE OP PT AND OT IN THE PAST AND THAT SHE LIKE SERVICES AT [facility]. SHE INDICATED SHE WOULD BE RECEPTIVE TO HH OR SKILLED IF RECOMMENDED UPON DC. ORTHO SAW PT AND INDICATED SHE COULD BE WBAT IN CAM BOOT ON RLE. OT ASSESSED HADN'T BEEN SEEN BY PT OF THIS NOTE. CM TO FOLLOW INDICATED WITH DC PLANNING. 5N INQUIRED ABOUT PT SHE HAS DX OF HEAD INJURY.
[2020-02-19 15:46] VITALS: BP 142/84
[2020-02-19 15:50] VITALS: BP 127/82
[2020-02-19 15:54] VITALS: BP 130/93
[2020-02-19 20:17] VITALS: BP 127/79; BP 143/88
--- NOTE | 2020-02-19 20:33 | NUR ---
ASSUMED CARE AT SHIFT CHANGE, ALERT AND ORIENTED X4 AND FORGETFUL. PATIENT GETS DISORIENTED AT TIMES AND SAYS THAT SHE DOEN'T WHERE SHE AT, BUT SHE CAN BE REDIRECTED ILDA. VSS AND AFEBRILE. SR ON THE MONITOR. MEDICATED FOR GENERLIZED PAIN. PROGRESSING TOWARDS GOALS, AND WILL CONTINUE WITH POC.
[2020-02-20 04:45] VITALS: BP 168/103
--- NOTE | 2020-02-20 05:00 | NUR ---
ASSESSMENT DOCUMENTED.PT RESTING IN NO ACUTE DISTRESS.A/OX4 WITH FORGETFULNESS.UP WITH ASSIST TO BSC.IVF.C/O PAIN TO RIGHT SHOULDER THAT WAS CONTROLLLED WITH PAIN MEDS.PT DENIES ANY OTHER NEEDS AT THIS TIME.PT PROGRESSING FAIRLY TO DISCHARGE GOALS.POSSIBLE DISCHARGE TO SNF/REHAB.
[2020-02-20 07:55] VITALS: BP 148/74
[2020-02-20 11:28] VITALS: BP 149/92
--- NOTE | 2020-02-20 13:38 | NUR ---
Spoke with patient and therapy. Patient wanting to dc home, therapy agreeable. Discussed HH patient with no preference and agreeable to [facility] for HH care. PCP Dr Ludy Lipscomb. Patient has caregivers during day in home with [facility]. dc planner intern to fax [facility]
[2020-02-20 14:32] VITALS: BP 149/92
--- NOTE | 2020-02-20 14:34 | NUR ---
FAXED REFERRAL TO [facility] HH SPOKE WITH DEB IN INTAKE SHE RECEIVED REFERRAL AND WILL ACCEPT AT [facility].
[2020-02-20 15:57] VITALS: BP 152/78
--- NOTE | 2020-02-20 15:58 | NUR ---
ASSESSMENT CHARTED. PT ALERT AND ORIENTED. VSS. UP IN THE CHAIR THIS SHIFT. PARTICIPATED IN PT/OT. REPORT FEELING MUCH BETTER TODAY. PLAN TO DISCHARGE IN AM. PROGRESSING WELL TOWARDS DISCHARGE GOAL.
[2020-02-20 19:50] VITALS: BP 156/94
--- NOTE | 2020-02-21 02:37 | NUR ---
PT ALERT AND ORIENTED. SEEMS DROWSY AND TIRED. DENIES CHEST PAIN, NAUSEA OR VOMITING. VITALS STABLE. VOIDING PER BEDSIDE COMMODE. WILL CONTINUE TO MONITOR.
[2020-02-21 03:50] VITALS: BP 153/101
[2020-02-21 07:45] VITALS: BP 137/98
[2020-02-21 08:05] VITALS: BP 137/98
[2020-02-21] MEDS ORDERED: CIPRO500 MG PO (09:52)
[2020-02-21] MEDS ORDERED: FLAGYL500 M1 PO (09:54)
--- NOTE | 2020-02-21 10:32 | NUR ---
PT DISCHARGING TODAY TO HOME WITH [facility] HH FAXED DC ORDERS/SUMMARY RECEIVED CONFIRMATION AND SPOKE WITH BAYRON IN INTAKE SHE WILL CALL PT TO ARRANGE VISITS.
[2020-02-21 11:26] VITALS: BP 149/92
--- NOTE | 2020-02-21 12:18 | NUR ---
PT CARE ASSUED AT 0700. ASSESSMENT CHATED. MEDICATION CHARTED. CPAP AT HS; PT'S OWN. CONT POX. PT TO BE DISCHARGED HOME WITH HH. TELEMETRY D/C'D. IV D/C'D. PT UTILIZED BS. PT REFUSES TO WEAR CAM BOOT.
== END 2020-02-21 13:11 | disposition home health service (06) | DRG 391 ==
LOC: ER 05:37 → 2N 12:25 → EROBS 12:25 → 2N 12:42
PROVIDERS: Emergency Medicine; ADMIT Hospitalist; ATTEND Hospitalist
PROC: 5A09457 Assistance with Respiratory Ventilation, 24-96 Consecutive Hours, Continuous Positive Airway Pressure (ICD-10-PCS; principal; 2020-02-18)
DX: K52.9 Noninfective gastroenteritis and colitis, unspecified (principal); N17.0 Acute kidney failure with tubular necrosis; E11.649 Type 2 diabetes mellitus with hypoglycemia without coma; S92.324A Nondisplaced fracture of second metatarsal bone, right foot, initial encounter for closed fracture; I95.2 Hypotension due to drugs; I10 Essential (primary) hypertension; G25.81 Restless legs syndrome; F31.9 Bipolar disorder, unspecified; G89.4 Chronic pain syndrome; S93.401A Sprain of unspecified ligament of right ankle, initial encounter; Z60.2 Problems related to living alone; E86.0 Dehydration; M19.90 Unspecified osteoarthritis, unspecified site; G47.33 Obstructive sleep apnea (adult) (pediatric); Z88.8 Allergy status to other drugs, medicaments and biological substances; Z79.4 Long term (current) use of insulin; Z90.49 Acquired absence of other specified parts of digestive tract; Z87.891 Personal history of nicotine dependence; Z88.6 Allergy status to analgesic agent; Z91.040 Latex allergy status; Z82.49 Family history of ischemic heart disease and other diseases of the circulatory system; Z80.51 Family history of malignant neoplasm of kidney; Z79.899 Other long term (current) drug therapy; W18.39XA Other fall on same level, initial encounter; Y93.89 Activity, other specified; Y92.89 Other specified places as the place of occurrence of the external cause; Y99.8 Other external cause status
CPT/HCPCS: 10081

== ENCOUNTER 2020-04-28 13:49 | Emergency (ER) | payer OTHER ==
[~2020-04-28] VITALS: Ht 157.5 cm; Wt 108.9 kg
[~2020-04-28 13:49] MED LIST changes: +CIPRO500 MG PO; +FLAGYL500 M1 PO; +LORCET 5-325 M1 EACH PO; +METFORMIN HCL500 M3 PO; +MIRAPEX1.5 MG PO; +TRESIBA FL100 UNIT/1
[2020-04-28] MEDS ORDERED: OZEMPIC1 MG/0.75 SUBQ (14:11)
[2020-04-28] MEDS ORDERED: TRESIBA FL200 UNIT/1 SUBQ (14:12)
[2020-04-28 14:13] LABS: ABSOLUTE NEUTROPHILS 5.9 thou/uL (1.4-8.2); BASOPHILS 0.8 % (0.0-2.0); EOSINOPHILS 5.8 % (0.0-3.0); HEMATOCRIT 37.8 % (37.0-47.0); HEMOGLOBIN 12.2 gm/dL (12.0-15.0); LYMPHOCYTES 15.9 % (24.0-44.0); MCHC 32.2 g/dL (28.0-37.0); MONOCYTES 11.1 % (1.0-8.0); PLATELET COUNT 344 thou/uL (150-400); POLYS 66.4 % (36.0-66.0); RBC 4.06 mil/uL (4.20-5.00); RDW 16.2 % (10.5-14.5)
[2020-04-28 14:23] LABS: ANION GAP 11 mmol/L (7-16); BUN 29 mg/dL (7-18); CALCIUM 8.9 mg/dL (8.5-10.1); CHLORIDE 106 mmol/L (98-107); CO2 23 mmol/L (21-32); CREATININE 1.7 mg/dL (0.6-1.0); GLUCOSE 160 mg/dL (74-106); POTASSIUM 4.8 mmol/L (3.5-5.1); SODIUM 140 mmol/L (136-145)
[2020-04-28 14:26] LABS: APTT 26.4 Seconds (24.5-32.8); PROTIME 10.3 Seconds (9.3-11.4)
[2020-04-28 14:33] LABS: ALBUMIN 3.1 g/dL (3.4-5.0); DIRECT BILIRUBIN < 0.1 mg/dL (<0.1-0.2); SGOT 16 U/L (15-37); SGPT 25 U/L (30-65); TOTAL BILIRUBIN 0.2 mg/dL (0.2-1.0); TOTAL PROTEIN 6.7 g/dL (6.4-8.2); TROPONIN-I <0.06 ng/mL (<0.06)
--- NOTE | 2020-04-28 14:42 | EKG ---
[facility] [place] [address] ELECTROCARDIOGRAM REPORT Name: CECY DEGROOT Room #: REG M..#: [id number] Admission: 04/28/20 Attend Phys: Discharge: Date of : 52 Report #: [id number] THIS REPORT FOR: cc: [facility] - Clinic physician unknown [facility] - Clinic physician unknown Jamil Mcfarlane MD [facility] ~ THIS REPORT FOR: //name// [facility] ED Test Date: 2020-04-28 Test Time: 14:05:14 Pat Name: CECY DEGROOT Department: Room: Gender: F Radiologist Physician: elise : 1950 Requested By: Damion Whalen Order Number: [id number] MD: Jamil Mcfarlane Measurements Intervals [place] Rate: 76 P: -16 [place]: 193 QRS: -30 QRSD: 97 T: 28 QT: 404 QTc: 455 Interpretive Statements Sinus rhythm Inferior infarct, old Compared to ECG 02/18/2020 11:02:13 Poor R-wave progression no longer present Myocardial infarct finding still present Electronically Signed On 04-28-2020 14:42:41 INSTRUMENT REPAIRER [employer] by Jamil Mcfarlane [email or web address] <ELECTRONICALLY SIGNED> By: Jamil Mcfarlane MD, FACC 04/28/20 1442 1405 1405 Jamil Mcfarlane MD, [facility] /EPI
[2020-04-28 16:53] LABS: URINE BILIRUBIN NEGATIVE (Negative); URINE BLOOD NEGATIVE (Negative); URINE CLARITY CLEAR; URINE COLOR YELLOW; URINE GLUCOSE-RANDOM* NEGATIVE (Negative); URINE KETONES NEGATIVE (Negative); URINE NITRITE-REFLEX NEGATIVE (Negative); URINE PROTEIN (DIPSTICK) NEGATIVE (Negative); URINE SPECIFIC GRAVITY 1.025 (1.005-1.035); URINE UROBILINOGEN 0.2 E.U./dl (0.2-1.0)
[2020-04-28 16:55] LABS: URINE LEUKOCYTES-REFLEX 1+ (Negative)
[2020-04-28 17:03] LABS: SQUAMOUS 4-10 Moderate /LPF (0-3)
[2020-04-28 17:04] LABS: BACTERIA-REFLEX 1-9 Few /HPF (None Seen); CRYSTALS None Seen /LPF (None Seen); HYALINE CASTS 0-3 Few /LPF (None Seen); URINE RBC None Seen /HPF (0-2)
[2020-04-28] MEDS ORDERED: KEFLEX500 M1 PO (17:09)
[2020-04-28] MEDS ORDERED: ZOFRAN ODT4 MG PO (17:09)
[2020-04-28 18:01] VITALS: BP 100/62
== END 2020-04-28 18:02 | disposition home or self-care (01) ==
LOC: ER 13:49
PROVIDERS: Emergency Medicine
DX: N39.0 Urinary tract infection, site not specified (principal); R19.7 Diarrhea, unspecified; R11.2 Nausea with vomiting, unspecified; I10 Essential (primary) hypertension; E11.9 Type 2 diabetes mellitus without complications; Z90.49 Acquired absence of other specified parts of digestive tract; Z79.4 Long term (current) use of insulin; Z79.899 Other long term (current) drug therapy; Z87.891 Personal history of nicotine dependence; Z88.5 Allergy status to narcotic agent; Z91.040 Latex allergy status; Z91.048 Other nonmedicinal substance allergy status

== ENCOUNTER 2020-12-02 10:32 | Inpatient (IN) | payer OTHER ==
[~2020-12-02] VITALS: Ht 157.5 cm; Wt 103.4 kg
[~2020-12-02 10:32] MED LIST changes: +OZEMPIC1 MG/0.75 SUBQ; +TRESIBA FL200 UNIT/1 SUBQ; +ZOFRAN ODT4 MG PO
[2020-12-02 10:37] VITALS: BP 115/70
[2020-12-02 10:54] LABS: ABSOLUTE NEUTROPHILS 5.8 thou/uL (1.4-8.2); BASOPHILS 0.7 % (0.0-2.0); EOSINOPHILS 5.8 % (0.0-3.0); HEMATOCRIT 39.5 % (37.0-47.0); HEMOGLOBIN 12.9 gm/dL (12.0-15.0); MCH 32.9 pg (26.0-34.0); MCHC 32.6 g/dL (28.0-37.0); MONOCYTES 13.3 % (1.0-8.0); PLATELET COUNT 333 thou/uL (150-400); POLYS 60.2 % (36.0-66.0); RBC 3.91 mil/uL (4.20-5.00); RDW 13.7 % (10.5-14.5); WBC 9.6 thou/uL (4.0-11.0)
[2020-12-02 11:02] LABS: ANION GAP 9 mmol/L (7-16); BUN 68 mg/dL (7-18); CALCIUM 9.1 mg/dL (8.5-10.1); CHLORIDE 106 mmol/L (98-107); CO2 22 mmol/L (21-32); CREATININE 2.6 mg/dL (0.6-1.0); GLUCOSE 95 mg/dL (74-106); POTASSIUM 5.6 mmol/L (3.5-5.1); SODIUM 137 mmol/L (136-145)
[2020-12-02 11:09] LABS: APTT 26.3 Seconds (24.5-32.8); INR 0.96; PROTIME 10.5 Seconds (10.5-12.1)
[2020-12-02 11:12] LABS: ALBUMIN 3.2 g/dL (3.4-5.0); SGOT 16 U/L (15-37); SGPT 27 U/L (14-59); TOTAL BILIRUBIN 0.2 mg/dL (0.2-1.0); TOTAL PROTEIN 6.8 g/dL (6.4-8.2); TROPONIN-I <0.06 ng/mL (<0.06)
--- NOTE | 2020-12-02 12:16 | EKG ---
[place] [address] [facility] [place] [address] ELECTROCARDIOGRAM REPORT Name: CECY DEGROOT [id number] Admission: 12/02/20 Attend Phys: Discharge: Date of : 52 Report #: [id number] [facility] ED Test Date: 2020-12-02 Test Time: 11:00:10 Pat Name: CECY DEGROOT Department: Room: Gender: F Waste Removalist: MALISSA : 1950 Requested By: Nuno Brown Order Number: [id number] MD: Jamil Mcfarlane Measurements Intervals [place] Rate: 70 P: 18 [place]: 184 QRS: -25 QRSD: 104 T: 51 QT: 372 QTc: 402 Interpretive Statements Sinus rhythm Inferior infarct, old Consider anterior infarct Compared to ECG 04/28/2020 14:05:14 No significant changes Electronically Signed On 12-02-2020 12:16:09 CDT by Jamil Mcfarlane [email or web address] <ELECTRONICALLY SIGNED> By: Jamil Mcfarlane MD, [facility] 12/02/20 1216 1100 [facility] Jamil Mcfarlane MD, FACC /EPI
[2020-12-02 14:57] VITALS: BP 117/40
[2020-12-02 15:19] VITALS: BP 104/83
[2020-12-02 15:39] LABS: CHOLESTEROL 211 mg/dL (<200); HDL CHOLESTEROL 52 mg/dL (>40); LDL CHOLESTEROL 120 mg/dL (<100); TC:HDL 4.1 Ratio (Not establshd); TRIGLYCERIDE 196 mg/dL (<150); VLDL 39 mg/dL (<40)
[2020-12-02 15:43] LABS: SERUM ASSESSMENT Clear
[2020-12-02] MEDS ORDERED: NORVASC5 MG PO (16:07)
[2020-12-02] MEDS ORDERED: BENZTROPINE MESY2 MG PO (16:10)
[2020-12-02] MEDS ORDERED: DICLOFENAC SOD100 G1 TOP (16:11)
[2020-12-02] MEDS ORDERED: GABAPENTIN600 M1 PO (16:13)
[2020-12-02] MEDS ORDERED: HYDROCODON-ACE1 EAC7 PO (16:14)
[2020-12-02] MEDS ORDERED: HALOPERIDOL 2 MG2 M1 PO (16:14)
[2020-12-02] MEDS ORDERED: METFORMIN HCL500 M1 PO (16:16)
[2020-12-02] MEDS ORDERED: PROTONIX40 M2 PO (16:17)
[2020-12-02] MEDS ORDERED: VALSARTAN320 MG PO (16:19)
[2020-12-02 16:22] VITALS: BP 105/61
[2020-12-02 16:25] LABS: FOLIC ACID 98.2 ng/mL (8.6-58.9)
[2020-12-02 20:22] VITALS: BP 105/69
[2020-12-03 00:03] VITALS: BP 117/74
[2020-12-03 04:00] VITALS: BP 126/74; BP 145/82
[2020-12-03 04:09] LABS: CALCIUM 8.5 mg/dL (8.5-10.1); PHOSPHORUS 3.9 mg/dL (2.5-4.9)
[2020-12-03 04:34] LABS: POTASSIUM 5.5 mmol/L (3.5-5.1)
[2020-12-03 06:21] LABS: PROT/CREAT RATIO 0.4; URINE CREATININE-RANDOM* 61.9 mg/dL; URINE PROTEIN-RANDOM* 23.4 mg/dL (<11.9)
[2020-12-03 06:23] LABS: URINE BILIRUBIN NEGATIVE (Negative); URINE BLOOD NEGATIVE (Negative); URINE CLARITY CLEAR; URINE COLOR YELLOW; URINE GLUCOSE-RANDOM* NEGATIVE (Negative); URINE KETONES NEGATIVE (Negative); URINE PROTEIN (DIPSTICK) NEGATIVE (Negative); URINE UROBILINOGEN 0.2 E.U./dl (0.2-1.0)
[2020-12-03 06:26] LABS: URINE LEUKOCYTES-REFLEX 2+ (Negative); URINE NITRITE-REFLEX POSITIVE (Negative)
[2020-12-03 06:36] LABS: CASTS None Seen /LPF (None Seen); MUCUS 0-3 Light strn/LPF (None Seen); SQUAMOUS 0-3 Few /LPF (0-3)
[2020-12-03 06:37] LABS: BACTERIA-REFLEX >30 Many /HPF (None Seen); CRYSTALS None Seen /LPF (None Seen); URINE RBC None Seen /HPF (NONE SEEN); URINE WBC-REFLEX 6-15 Few /HPF (0-5); WBC CLUMPS Occasional (None Seen)
[2020-12-03 07:20] VITALS: BP 131/75
--- NOTE | 2020-12-03 10:45 | NUR ---
Nutrition: pt admitted with TIA, hyperkalemia, dehydration, renal insufficiency. RN consult due to poor intake. No recent weight loss noted. pt wih hx of gastric bypass 5-6 years ago so unable to eat large amounts anyway. Pt also with significant psych history including personality disorder. Currently eating 25% of meals and states its because she doesn't like it. Assisted pt in ordering meals today and educated on doing so in the future. Feel pt will eat better when having choices. Monitor K+ level, curently on IVFs. Does take a vitamin/calcium at home. REC ordering these supplements. Add ensure max if po does not improve and K+ normalizes.Consider low nutrition risk otherwise.
[2020-12-03 11:25] VITALS: BP 13/99; BP 131/99
[2020-12-03] MEDS ORDERED: LIPITOR 40 MG T40 M1 PO (13:17)
[2020-12-03 15:42] VITALS: BP 159/97
[2020-12-03 19:47] VITALS: BP 109/76
[2020-12-04 07:51] LABS: ALBUMIN 2.8 g/dL (3.4-5.0); CALCIUM 8.5 mg/dL (8.5-10.1); CREATININE 1.4 mg/dL (0.6-1.0); PHOSPHORUS 2.8 mg/dL (2.5-4.9)
[2020-12-04 08:57] LABS: POTASSIUM 4.5 mmol/L (3.5-5.1)
[2020-12-04 09:52] VITALS: BP 158/102
[2020-12-04 11:19] VITALS: BP 121/76
--- NOTE | 2020-12-04 12:26 | 2DMMODE ---
[facility] [place] [address] 2 D/M-MODE ECHOCARDIOGRAM Name: CECY DEGROOT Room #: 202-P ADM IN M.R.#: [id number] Admission: 12/02/20 Attend Phys: Braulio La MD Discharge: Date of : 52 Report #: [id number] THIS REPORT FOR: cc: Coby Celaya MD, Laura A. MD Santiago, Patrick MD [facility] ~ APPROVED REPORT Study performed: 12/04/2020 11:27:31 EXAM: Comprehensive 2D, Doppler, and color-flow Echocardiogram Patient Location: Bedside Room #: 202 Status: routine BSA: 2.02 HR: 70 bpm BP: 158/102 mmHg Rhythm: NSR Other Information Study Quality: Adequate Indications TIA Echo Enhancing Agent Indication: Rule out Shunt Agent(s) / Amount(s) Used: Agitated Saline 7 cc 2D Dimensions RVDd: 37.24 mm IVSd: 12.55 (7-11mm) LVOT Diam: 22.07 (18-24mm) LVDd: 49.92 mm PWd: 12.85 (7-11mm) Ascending Ao: 39.39 (22-36mm) LVDs: 28.25 (25-40mm) Left Atrium: 38.81 (27-40mm) Aortic Root: 37.19 mm Volumes Left Atrial Volume (Systole) Single Plane 4CH: 56.14 mL Single Plane 2CH: 38.85 mL LA ESV Index: 26.00 mL/m2 Aortic Valve [facility] [place] [address] 2 D/M-MODE ECHOCARDIOGRAM Name: MIKAYLACECY Room #: 202-P [facility] IN M.R.#: [id number] Admission: 12/02/20 Attend Phys: Braulio La MD Discharge: Date of : 52 Report #: [id number] AoV Peak David.: 1.71 m/s AO Peak Gr.: 11.70 mmHg LVOT Max P.83 mmHg LVOT Max V: 1.21 m/s BRAEDEN Vmax: 2.70 cm2 Mitral Valve E/A Ratio: 0.8 MV Decel. Time: 232.11 ms MV E Max David.: 0.59 m/s MV A David.: 0.70 m/s MV PHT: 67.31 ms IVRT: 117.65 ms Pulmonary Valve PV Peak David.: 1.09 m/s PV Peak Gr.: 4.75 mmHg Pulmonary Vein P Vein S: 0.59 m/s P Vein D: 0.45 m/s P Vein S/D Ratio: 1.31 Tricuspid Valve TR Peak David.: 2.51 m/s RAP Estimate: 5.00 mmHg TR Peak Gr.: 25.22 mmHg PA Pressure: 30.00 mmHg Left Ventricle The left ventricle is normal size. There is normal LV segmental wall motion. Mild concentric left ventricular hypertrophy. Left ventricular systolic function is normal. LVEF is 60-65%. Mild diastolic dysfunction is present (impaired relaxation pattern). Right Ventricle The right ventricle is normal size. The right ventricular systolic function is normal. Atria The left atrium size is normal. No shunting noted with contrast bubble injection. The right atrium size is normal. Aortic Valve The aortic valve is normal in structure; mildly calcified. Trace aortic regurgitation. There is no aortic valvular stenosis. Mitral Valve [facility] [address] [place] [address] 2 D/M-MODE ECHOCARDIOGRAM Name: CECY DEGROOT Room #: 202-P [facility] IN M.R.#: [id number] Admission: 12/02/20 Attend Phys: Braulio La MD Discharge: Date of : 52 Report #: [id number] The mitral valve is normal in structure. There is no mitral valve regurgitation noted. No evidence of mitral valve stenosis. Tricuspid Valve The tricuspid valve is normal in structure. Trace tricuspid regurgitation. Estimated PAP is 30mmHg. Pulmonic Valve The pulmonary valve is normal in structure. Trace pulmonic regurgitation. Great Vessels The aortic root is normal in size. The ascending aorta is mildly dilated (4.1). IVC is normal in size and collapses >50% with inspiration. Pericardium There is no pericardial effusion. <Conclusion> Normal left ventricular size with mild concentric hypertrophy Ejection fraction 60% Grade 1 diastolic dysfunction Normal right ventricular size/function Normal atrial size Color-flow Doppler study was performed of the aortic/mitral/tricuspid/pulmonary valve Mild aortic valve calcification without stenosis Normal mitral valve structure and function Trace tricuspid valve insufficiency Pulmonary systolic pressure estimated 30 mmHg No pericardial effusion Mildly dilated ascending aorta at 4.1 cm <ELECTRONICALLY SIGNED> By: Jamil Mcfarlane MD, FACC 12/04/20 1226 122 25 Jamil Mcfarlane MD, FACC /INF
--- NOTE | 2020-12-04 16:08 | NUR ---
ASSUMED CARE SHIFT CHANGE. ASSESSMENT CHARTED.VSS. C/O PAIN, MEDS GIVEN. PT UP SBA TENZIN WELL. ROOM AIR. CPAP AT NOC. DC ORDERS. DISCUSSED WITH PT COMMUNICATES UNDERSTANDING. TELE REMOVED. IV REMOVED. PT BELONGINGS. ALL PACKED. RIDE ON THE WAY, PT WILL LEAVE UNIT WITH ALL BELONGINGS.
--- NOTE | 2020-12-09 12:45 | HC ---
[facility] [place] [address] CONSULTATION Name: CECY DEGROOT Room #: 202-P [facility] IN M.R.#: [id number] Admission: 12/02/20 Attend Phys: Braulio La MD Discharge: 12/04/20 Date of : 52 Report #: [id number] THIS REPORT FOR: cc: Coby Celaya MD, Laura A. MD Khosla, Parveen K. MD ~ DOC #: [id number] Gino Bush MD DATE OF SERVICE: 12/02/2020 HISTORY OF PRESENT ILLNESS: This is a 70-year-old female patient who was evaluated by me for the possibility of stroke. The patient was seen in the Emergency Room. I talked to Emergency Room physician multiple times. I talked to Dr. La, who is going to be the admitting physician in this patient. This patient has multiple problems. She said she has left-sided weakness and slurred speech. She said both of them were improving. There was no pain associated with it. These things came spontaneously. The history is complicated because of multiple reasons, which will be described as below. REVIEW OF SYSTEMS: Positive for multiple things. She apparently has a history of hypertension, restless leg syndrome. She has a bipolar disorder and the records indicate she may have borderline personality disorder. I did not elaborate on that history too much. She had a history of gastric bypass, hernias, cellulitis, urinary tract infections. In fact, the relevant history in this regard was that her creatinine was very high and her GFR is only 18 and because of that, the patient's CT angiogram could not be done. She was not complaining of any visual disturbance, ENT symptoms, respiratory, GI, , musculoskeletal, constitutional, dermatological, hematological symptom associated with these symptoms. She has a pretty significant psychiatric history in the past. She goes to psychiatrist. She is on multiple medications for that. She says she is on Lamictal and she was going to be on a new medication, which she has not taken yet. She did not know the name. This was a relevant 14-point review of system, which was carried out. She is also diabetic. PAST MEDICAL HISTORY: Positive for multiple psychiatric problems. FAMILY HISTORY: Negative for early age stroke. SOCIAL HISTORY: She does not use alcohol. She has smoked in the past, but does not do it now. PHYSICAL EXAMINATION: NEUROLOGIC: Indicate that she is alert. She is responsive. Her speech may be somewhat unusual, but she is able to comprehend things and she is able to express without any significant difficulty. Her memory, she says it is at her [facility] [address] [place] [address] CONSULTATION Name: CECY DEGROOT Room #: 202-P [facility] IN M.R.#: [id number] Admission: 12/02/20 Attend Phys: Braulio La MD Discharge: 12/04/20 Date of : 52 Report #: [id number] baseline and so is fund of knowledge. Cranial nerve examination 2-12 are mostly noncontributory. When I examined the patient,it does not appear that she is profoundly weak on the left side. In fact, neuromuscular examination appears symmetrical and there was no cerebellar sign in this patient. There is no carotid bruit. CARDIAC: Unremarkable. She is morbidly obese. LUNGS: She does not appear to be in any respiratory difficulty. VITAL SIGNS: Blood pressure is 117/40, respirations 14, pulse is 75, temperature is 97.8. LABORATORY DATA: Indicate a white count of 9.6 and GFR of only 18. I reviewed the patient's MRI, which were done because her creatinine was very high, that does not show any acute stroke. IMPRESSION: Transient ischemic attack versus encephalopathy versus combination. I think the emphasis should be to evaluate and manage her systemic problems, especially her significantly increased creatinine. I will check a carotid ultrasound in this patient and an EEG, but I do not think any further neurological intervention is needed at this patient. MCV is somewhat high, I will suggest checking a vitamin B12 level. All of it was discussed with the patient in detail and she understands it and she wants to follow this plan. Gino Bush MD PK/ALL <ELECTRONICALLY SIGNED> By: Gino Bush MD 12/09/20 1245 1410 2136 Gino Bush MD /nt
--- NOTE | 2020-12-09 12:46 | EEG ---
[facility] [place] [address] ELECTROENCEPHALOGRAM Name: CECY DEGROOT Room #: 202-P [facility] IN M.R.#: [id number] Admission: 12/02/20 Attend Phys: Braulio La MD Discharge: 12/04/20 Date of : 52 Report #: [id number] THIS REPORT FOR: //name// DOC #: [id number] Gino Bush MD DATE OF SERVICE: 12/02/2020 This patient is being evaluated for altered mental status. EEG was done by placing the electrode by standard 10-20 system of electrode placement. Both referential and sequential montages were used for recording. Background activity in this patient's EEG is about 8-9 Hz and 30 microvolt. Photic stimulation is unremarkable. This patient became drowsy and that is associated with bilateral slowing and vertex sharp waves. Throughout the record, no active epileptiform activity was noticed. IMPRESSION: This patient's EEG is intermixed with theta range slowing on both sides. There is a nonspecific abnormality, which can occur with encephalopathy, effect of psychotropic medication, dementia, etc. Clinical correlation is recommended. Gino Bush MD PK/NEE <ELECTRONICALLY SIGNED> By: Gino Bush MD 12/09/20 1246 1327 1624 MD ryann Khan
== END 2020-12-04 16:45 | disposition home or self-care (01) | DRG 682 ==
LOC: ER 10:32 → 2N 14:05 → EROBS 14:05 → 2N 15:19
PROVIDERS: Emergency Medicine; Hospitalist; Internal Medicine Nephrology; ADMIT Hospitalist; ATTEND Hospitalist
PROC: 5A09457 Assistance with Respiratory Ventilation, 24-96 Consecutive Hours, Continuous Positive Airway Pressure (ICD-10-PCS; principal; 2020-12-02)
DX: I12.9 Hypertensive chronic kidney disease with stage 1 through stage 4 chronic kidney disease, or unspecified chronic kidney disease (principal); N17.0 Acute kidney failure with tubular necrosis; G45.9 Transient cerebral ischemic attack, unspecified; Z68.41 Body mass index [BMI] 40.0-44.9, adult; G25.81 Restless legs syndrome; F31.9 Bipolar disorder, unspecified; E87.5 Hyperkalemia; E86.0 Dehydration; E11.22 Type 2 diabetes mellitus with diabetic chronic kidney disease; E66.9 Obesity, unspecified; G47.33 Obstructive sleep apnea (adult) (pediatric); N18.9 Chronic kidney disease, unspecified; Z79.1 Long term (current) use of non-steroidal anti-inflammatories (NSAID); Z79.4 Long term (current) use of insulin; Z90.49 Acquired absence of other specified parts of digestive tract; Z87.891 Personal history of nicotine dependence; Z88.8 Allergy status to other drugs, medicaments and biological substances; Z88.6 Allergy status to analgesic agent; Z91.040 Latex allergy status
CPT/HCPCS: 10081

== ENCOUNTER 2020-12-09 18:18 | Emergency (ER) | payer OTHER ==
[~2020-12-09] VITALS: Ht 157.5 cm; Wt 108.0 kg
[~2020-12-09 18:18] MED LIST changes: +BENZTROPINE MESY2 MG PO; +DICLOFENAC SOD100 G1 TOP; +GABAPENTIN600 M1 PO; +HALOPERIDOL 2 MG2 M1 PO; +HYDROCODON-ACE1 EAC7 PO; +LIPITOR 40 MG T40 M1 PO; +METFORMIN HCL500 M1 PO; +NORVASC5 MG PO; +PROTONIX40 M2 PO; +VALSARTAN320 MG PO
[2020-12-09 18:42] LABS: URINE BILIRUBIN NEGATIVE (Negative); URINE BLOOD NEGATIVE (Negative); URINE CLARITY SL CLOUDY; URINE COLOR YELLOW; URINE GLUCOSE-RANDOM* NEGATIVE (Negative); URINE KETONES NEGATIVE (Negative); URINE LEUKOCYTES-REFLEX 2+ (Negative); URINE NITRITE-REFLEX POSITIVE (Negative); URINE PROTEIN (DIPSTICK) NEGATIVE (Negative); URINE SPECIFIC GRAVITY >= 1.030 (1.005-1.035); URINE UROBILINOGEN 0.2 E.U./dl (0.2-1.0)
[2020-12-09 18:48] LABS: ABSOLUTE NEUTROPHILS 6.3 thou/uL (1.4-8.2); BASOPHILS 0.5 % (0.0-2.0); EOSINOPHILS 2.4 % (0.0-3.0); HEMATOCRIT 36.5 % (37.0-47.0); HEMOGLOBIN 11.9 gm/dL (12.0-15.0); LYMPHOCYTES 9.7 % (24.0-44.0); MCH 32.7 pg (26.0-34.0); MCHC 32.5 g/dL (28.0-37.0); MCV 100.5 fL (80.0-100.0); PLATELET COUNT 294 thou/uL (150-400); POLYS 80.4 % (36.0-66.0); RBC 3.63 mil/uL (4.20-5.00); RDW 13.3 % (10.5-14.5); WBC 7.9 thou/uL (4.0-11.0)
[2020-12-09 19:03] LABS: HYALINE CASTS 4-10 Moderate /LPF (None Seen); SQUAMOUS 0-3 Few /LPF (0-3); URINE RBC None Seen /HPF (NONE SEEN)
[2020-12-09 19:04] LABS: BACTERIA-REFLEX >30 Many /HPF (None Seen); CRYSTALS None Seen /LPF (None Seen); TRANSITIONAL EPITHEL CELL 0-3 Few /LPF (None Seen)
[2020-12-09 19:06] LABS: CALCIUM 8.9 mg/dL (8.5-10.1); CREATININE 2.9 mg/dL (0.6-1.0); POTASSIUM 5.3 mmol/L (3.5-5.1)
[2020-12-09 19:12] LABS: ALBUMIN 3.2 g/dL (3.4-5.0); TOTAL BILIRUBIN 0.3 mg/dL (0.2-1.0); TOTAL PROTEIN 6.8 g/dL (6.4-8.2)
[2020-12-09] MEDS ORDERED: CAPLYTA42 MG PO (19:44)
[2020-12-09] MEDS ORDERED: BACTRIM DS TAB1 EACH PO (20:30)
[2020-12-09 20:53] VITALS: BP 95/42
--- NOTE | 2020-12-10 06:45 | EKG ---
[place] [address] [employer] [facility] [place] [address] ELECTROCARDIOGRAM REPORT Name: CECY DEGROOT [id number] Admission: 12/09/20 Attend Phys: Discharge: 12/09/20 Date of : 52 Report #: [id number] [facility] ED Test Date: 2020-12-09 Test Time: 19:01:34 Pat Name: CECY DEGROOT Department: Room: Gender: F Application Analyst: OSMANY : 1950 Requested By: Preston Dc Order Number: [id number] MD: Jamil Mcfarlane Measurements Intervals [place] Rate: 81 P: -9 KS: 187 QRS: -23 QRSD: 106 T: 55 QT: 383 QTc: 445 Interpretive Statements Sinus rhythm Inferior infarct, old Baseline wander in lead(s) I,II,III,aVR,aVF Compared to ECG 12/02/2020 11:00:10 No significant changes Electronically Signed On 12-10-2020 6:44:55 CDT by Jamil Mcfarlane [email or web address] <ELECTRONICALLY SIGNED> By: Jamil Mcfarlane MD, [facility] 12/10/2044 00 00 Jamil Mcfarlane MD, FACC /EPI
== END 2020-12-09 21:12 | disposition home or self-care (01) ==
LOC: ER 18:18
PROVIDERS: Emergency Medicine Emergency Medical Services
DX: R41.0 Disorientation, unspecified (principal); N39.0 Urinary tract infection, site not specified; I10 Essential (primary) hypertension; F31.9 Bipolar disorder, unspecified; F10.21 Alcohol dependence, in remission; E11.9 Type 2 diabetes mellitus without complications; Z90.49 Acquired absence of other specified parts of digestive tract; Z98.890 Other specified postprocedural states; Z79.891 Long term (current) use of opiate analgesic; Z79.4 Long term (current) use of insulin; Z87.891 Personal history of nicotine dependence; Z91.041 Radiographic dye allergy status; Z88.5 Allergy status to narcotic agent; Z86.73 Personal history of transient ischemic attack (TIA), and cerebral infarction without residual deficits; Z79.899 Other long term (current) drug therapy

== ENCOUNTER 2021-01-07 15:10 | Inpatient (IN) | payer OTHER ==
[~2021-01-07] VITALS: Ht 160 cm; Wt 100.2 kg
[~2021-01-07 15:10] MED LIST changes: +BACTRIM DS TAB1 EACH PO; +CAPLYTA42 MG PO
[2021-01-07 15:14] VITALS: BP 97/62
--- NOTE | 2021-01-07 16:06 | EKG ---
[place] [address] [facility] [place] [address] ELECTROCARDIOGRAM REPORT Name: CECY DEGROOT Room #: PRE M.R.#: [id number] Admission: Attend Phys: Discharge: Date of : 52 Report #: [id number] [facility] ED Test Date: 2021-01-07 Test Time: 15:53:55 Pat Name: CECY DEGROOT Department: Room: Gender: F Environmental Technician: : 1950 Requested By: Marciano Tellez Order Number: [id number] MD: Jamil Mcfarlane Measurements Intervals [place] Rate: 78 P: 2 TX: 173 QRS: -27 QRSD: 110 T: 16 QT: 397 QTc: 453 Interpretive Statements Sinus rhythm Borderline left axis deviation Abnormal R-wave progression, early transition Compared to ECG 12/09/2020 19:01:34 Myocardial infarct finding no longer present Electronically Signed On 01-07-2021 16:06:35 CDT by Jamil Mcfarlane [email or web address] <ELECTRONICALLY SIGNED> By: Jamil Mcfarlane MD, [facility] 01/07/21 1606 1553 1553 Jamil Mcfarlane MD, FACC /EPI
[2021-01-07 16:08] LABS: ABSOLUTE NEUTROPHILS 6.7 thou/uL (1.4-8.2); BASOPHILS 0.8 % (0.0-2.0); EOSINOPHILS 5.1 % (0.0-3.0); HEMATOCRIT 35.9 % (37.0-47.0); HEMOGLOBIN 11.9 gm/dL (12.0-15.0); LYMPHOCYTES 13.4 % (24.0-44.0); MCH 32.9 pg (26.0-34.0); MCV 99.6 fL (80.0-100.0); MONOCYTES 9.2 % (1.0-8.0); PLATELET COUNT 307 thou/uL (150-400); POLYS 71.5 % (36.0-66.0); RBC 3.61 mil/uL (4.20-5.00); WBC 9.4 thou/uL (4.0-11.0)
[2021-01-07 17:03] LABS: ANION GAP 16 mmol/L (7-16); BUN 32 mg/dL (7-18); CALCIUM 8.8 mg/dL (8.5-10.1); CHLORIDE 102 mmol/L (98-107); CO2 23 mmol/L (21-32); CREATININE 2.4 mg/dL (0.6-1.0); GLUCOSE 92 mg/dL (74-106); POTASSIUM 4.4 mmol/L (3.5-5.1); SODIUM 141 mmol/L (136-145)
[2021-01-07 17:15] LABS: ALBUMIN 3.3 g/dL (3.4-5.0); SGOT 17 U/L (15-37); SGPT 22 U/L (14-59); TOTAL BILIRUBIN 0.2 mg/dL (0.2-1.0); TOTAL PROTEIN 6.4 g/dL (6.4-8.2); TROPONIN-I <0.06 ng/mL (<0.06)
[2021-01-07 17:29] LABS: URINE BILIRUBIN NEGATIVE (Negative); URINE BLOOD NEGATIVE (Negative); URINE CLARITY CLEAR; URINE COLOR YELLOW; URINE GLUCOSE-RANDOM* NEGATIVE (Negative); URINE KETONES TRACE (Negative); URINE NITRITE-REFLEX NEGATIVE (Negative); URINE PROTEIN (DIPSTICK) TRACE (Negative); URINE SPECIFIC GRAVITY 1.025 (1.005-1.035); URINE UROBILINOGEN 0.2 E.U./dl (0.2-1.0)
[2021-01-07 17:34] LABS: URINE LEUKOCYTES-REFLEX 2+ (Negative)
[2021-01-07 17:41] LABS: AMP/METHAMP Negative (Negative); BARBITURATES Negative (Negative); BENZODIAZEPINES Negative (Negative); COCAINE Negative (Negative); METHADONE Negative (Negative); OPIATES POSITIVE (Negative); PCP Negative (Negative)
[2021-01-07 17:48] LABS: HYALINE CASTS 0-3 Few /LPF (None Seen); SQUAMOUS 4-10 Moderate /LPF (0-3)
[2021-01-07 17:49] LABS: BACTERIA-REFLEX >30 Many /HPF (None Seen); CRYSTALS None Seen /LPF (None Seen); URINE RBC None Seen /HPF (NONE SEEN); URINE WBC-REFLEX >25 Many /HPF (0-5)
[2021-01-07] MEDS ORDERED: CEPHALEXIN500 MG PO (19:24)
--- NOTE | 2021-01-07 21:24 | NUR ---
PT'S [facility] # [phone]
[2021-01-08 05:31] LABS: HEMATOCRIT 34.2 % (37.0-47.0); HEMOGLOBIN 11.2 gm/dL (12.0-15.0); MCH 32.9 pg (26.0-34.0); MCHC 32.7 g/dL (28.0-37.0); MCV 100.5 fL (80.0-100.0); RBC 3.4 mil/uL (4.20-5.00); RDW 13.2 % (10.5-14.5)
[2021-01-08 06:18] LABS: CALCIUM 8.3 mg/dL (8.5-10.1); CREATININE 1.8 mg/dL (0.6-1.0); POTASSIUM 3.9 mmol/L (3.5-5.1)
--- NOTE | 2021-01-08 07:18 | NUR ---
TOOK OVER CARE FROM CURTIS VARGAS AT THIS TIME
--- NOTE | 2021-01-08 10:54 | NUR ---
PT WAS CONCERNED HER PHONE WAS LOST, THIS RN AND MANAGER SEARCH ENGINE LOOKED THROUGH ROOM AND LAUNDRY BASKET AND NO PHONE WAS FOUND. PT HAS OLD CELLPHONE IN [place] BUT STATED IT WAS A FREE PHONE AND NOT THE ONE SHE IS TALKING ABOUT. THIS RN CONTACT EX WHO STATED HE HAS HER CELL PHONE AND IT IS BROKEN AND NEEDS TO BE FIXED BUT THE FREE PHONE SHE IS SPEAKING OF IS THE ONE SHE IS CURRENTLY USING. 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 PT NOTES THIS IS NORMAL MENTATION FOR HER.
--- NOTE | 2021-01-08 19:06 | NUR ---
REPORT GIVEN TO CURTIS SANCHEZ AT THIS TIME
[2021-01-08 19:18] VITALS: BP 136/86
[2021-01-08 19:47] VITALS: BP 164/92
[2021-01-09] VITALS (7 sets, daily range): BP systolic 132–179; BP diastolic 90–117
[2021-01-09 02:38] LABS: HEMATOCRIT 32.9 % (37.0-47.0); HEMOGLOBIN 10.9 gm/dL (12.0-15.0); MCHC 33.2 g/dL (28.0-37.0); MCV 99.6 fL (80.0-100.0); RBC 3.3 mil/uL (4.20-5.00); RDW 13.2 % (10.5-14.5); WBC 8.6 thou/uL (4.0-11.0)
[2021-01-09 02:57] LABS: CALCIUM 8.7 mg/dL (8.5-10.1); CREATININE 1.4 mg/dL (0.6-1.0); POTASSIUM 3.9 mmol/L (3.5-5.1)
--- NOTE | 2021-01-09 05:23 | NUR ---
patient aox2/3 confused and forgetful. patient admitted for ams, uti and general weakness. patient had dinner in er, patient encouraged fluids. patient incontinent this shift, pericare and barrier cream applied as needed. patient skin is warma and dry appropriate to race. fall precaution in place. patient in bed asleep at this time breathing regular and unlaboured.
--- NOTE | 2021-01-09 11:54 | NUR ---
PATIENT FOUND ON FLOOR AT 1120 AFTER AN UNWITNESSED FALL. PATIENT IS A&OX3 BEFORE FALL AND SAME ORIENTATION FOLLOWING FALL. PATIENT REPORTS PAIN IN THE RIGHT HIP. HOSPITALIST MADE AWARE OF FALL AND PATIENT REPORTING HIP PAIN, ORDERS RECEIVED. FAMILY NOT NOTIFIED NO FAMILY IS LISTED. LAST CHECK ON PATIENT BY NURSE WAS AT 1026, ALL FALL PRECAUTIONS WERE IN PLACE AND BED ALARM WAS ON, PATIENT SLEEPING IN BED. AIR CHIPPER REPORTS BEING IN ROOM APPROXIMATELY 1100, WITH BED ALARM ON.
--- NOTE | 2021-01-09 12:53 | NUR ---
ASSUMED PT CARE THIS AM. PT A&OX3, MAKES SOME NEEDS KNOWN. IV WAS DISCONTINUED BY PATIENT. PATIENT HAS BEEN CONTINENT AND INCONTINENT THIS SHIFT. PATIENT IS ON ROOM AIR. MEDICATIONS TAKEN WITHOUT ISSUE THIS AM.HOSPITALIST MADE AWARE OF PATIENT'S ELEVATED BLOOD PRESSURE. PATIENT REMAINS ON TELE. FALL PRECAUTIONS ARE IN PLACE.
--- NOTE | 2021-01-10 04:36 | NUR ---
PATIENT AOX3 CONFUSED AND FORGETFUL. SCD ON. PATIENT USES BEDSIDE COMMODE. PATIENT IMPULSIVE THIS SHIFT. PATIENT USES C PAP AT NIGHT. FALL PRECAUTION IN PLACE. PATIENT IN BED ASLEEP AT THIS TIME BREATHING REGULAR AND UNLABOURED.
[2021-01-10 07:45] VITALS: BP 160/87
[2021-01-10] MEDS ORDERED: CEPHALEXIN500 MG PO (12:15)
--- NOTE | 2021-01-10 14:14 | NUR ---
Pt. is lethargic on CPAP from home. VSS. Tolerated morning med well. No s/s of distress noted. Dr. Sanchez discghared pt. She wanted to shower before she left. Up with assist . Able to urinate on commode. Wanted to wear a brief home. No BM today.
[2021-01-10 14:30] VITALS: BP 160/87
[2021-01-10 16:00] VITALS: BP 151/86
[2021-01-12 11:14] VITALS: BP 160/87
--- NOTE | 2021-01-12 11:18 | NUR ---
FAXED DISCHARGE ORDERS, SUMMARY, PT/OT PROGRESS NOTES AND NEGATIVE COVID RESULT (01/07/21) TO [facility]. WILL CONFIRM THEY RECEIVED. [facility] P [phone]; FAX [phone]
== END 2021-01-10 16:00 | disposition home or self-care (01) | DRG 682 ==
LOC: ER 15:10 → 4W 20:40 → EROBS 20:40 → 4W 01-08 19:55
PROVIDERS: Hospitalist; Nurse Practitioner; Student in an Organized Health Care Education/Training Program; ADMIT Internal Medicine; ATTEND Internal Medicine
PROC: 5A09357 Assistance with Respiratory Ventilation, Less than 24 Consecutive Hours, Continuous Positive Airway Pressure (ICD-10-PCS; principal; 2021-01-10)
DX: N17.0 Acute kidney failure with tubular necrosis (principal); G92 Toxic encephalopathy; N39.0 Urinary tract infection, site not specified; G25.81 Restless legs syndrome; F60.9 Personality disorder, unspecified; F31.9 Bipolar disorder, unspecified; I12.9 Hypertensive chronic kidney disease with stage 1 through stage 4 chronic kidney disease, or unspecified chronic kidney disease; N18.9 Chronic kidney disease, unspecified; E11.22 Type 2 diabetes mellitus with diabetic chronic kidney disease; Z60.2 Problems related to living alone; R29.6 Repeated falls; R53.81 Other malaise; F41.9 Anxiety disorder, unspecified; R32 Unspecified urinary incontinence; Z20.822 Contact with and (suspected) exposure to COVID-19; Z86.73 Personal history of transient ischemic attack (TIA), and cerebral infarction without residual deficits; Z90.49 Acquired absence of other specified parts of digestive tract; Z87.891 Personal history of nicotine dependence; Z98.84 Bariatric surgery status; Z79.4 Long term (current) use of insulin; Z79.899 Other long term (current) drug therapy
CPT/HCPCS: 10045